=== PATIENT | male | born 1960 | race Caucasian/White ===

== ENCOUNTER 2018-06-02 18:38 | Inpatient (IN) ==
[2018-06-02] MEDS ORDERED: MORPHINE 4 MG/1 ML VIAL IV PRN ×2 (20:46→21:03)
[2018-06-02] MEDS ORDERED: ONDANSETRON 4 MG/2 ML VIAL IV PRN (20:46)
[2018-06-02] MEDS ORDERED: BISACODYL 5 MG TABLET PO PRN (20:46)
[2018-06-02] MEDS ORDERED: ACETAMINOPHEN 325 MG TABLET PO PRN (21:03)
[2018-06-02] MEDS: dilTIAZem Drip 125 MG/125 ML PREMIX IV SCH (21:21)
[2018-06-02] MEDS ORDERED: NITROGLYCERIN SL 0.4 MG TABLET SL ONE (21:30)
[2018-06-03 04:04] LABS: Basophils % 0.6 % (0.0-0.8); Eosinophils # 0.2 10*3/uL (0.0-0.87); Eosinophils % 2.8 % (0.00-10.9); Hematocrit 41.6 VOL% (42.0-52.0); Hemoglobin 13.7 GM/DL (14.0-18.0); Immature Granulocytes % 0.3 %; Immature Granulocytes Absolute 0.02 #; Lymphocytes # 0.8 10*3/uL (1.4-4.0); Lymphocytes % 11.4 % (21.2-54.2); Mean Corpuscular HGB Conc 32.9 GM/DL (32-36); Mean Corpuscular Hemoglobin 32 PG (27-34); Mean Corpuscular Volume 96.5 FL (87-102); Mean Platelet Volume 10.9 FL (9.6-12.0); Monocytes # 0.8 10*3/uL (0.11-0.8); Monocytes % 11.2 % (1.7-12.7); Neutrophils # 5.4 10*3/uL (1.4-7.4); Neutrophils % 73.7 % (38.7-73.9); Platelet Count 152 T/CUMM (130-400); Red Blood Count 4.31 MC/CUMM (3.8-5.5); Red Cell Distribution Width 17.3 % (9.3-17.3); White Blood Count 7.3 T/CUMM (4-12)
[2018-06-03 04:14] LABS: INR 1.3; PT Patient Result 13.8 SECS; Partial Thromboplastin Time 29.2 SECS (0-40)
[2018-06-03 04:27] LABS: Bilirubin,Total 5.4 MG/DL (0.2-1.0); Calcium 8.1 MG/DL (8.5-10.1); Osmolality,Calculated 276.5 MOS/KG (273-304); Potassium 3.5 MMOL/L (3.5-5.1); Risk Ratio 3.45; Total Protein 6.5 G/DL (6.4-8.3); VLDL CHOLESTEROL 14.8 MG/DL
[2018-06-03] MEDS ORDERED: ENOXAPARIN 150 MG/ML SYRINGE SUBCUT SCH (09:00)
[2018-06-03] MEDS ORDERED: CLINDAMYCIN 600 MG/4 ML VIAL IM SCH (09:00)
[2018-06-03] MEDS: FUROSEMIDE 40 MG/4 ML VIAL IV SCH ×2 (09:21→16:42)
[2018-06-03] MEDS: LOSARTAN 50 MG TABLET PO SCH ×2 (09:22→21:16)
[2018-06-03] MEDS: DILTIAZEM CD 240 MG CAPSULE PO SCH (09:22)
[2018-06-03] MEDS: CARVEDILOL 25 MG TABLET PO SCH ×2 (09:22→21:16)
[2018-06-03] MEDS: predniSONE 5 MG TABLET PO SCH (09:22)
[2018-06-03] MEDS: FOLIC ACID 1 MG TABLET PO SCH (09:22)
[2018-06-03] MEDS: CLINDAMYCIN INJ 600 MG in PREMIX 1 EACH IV SCH ×2 (09:41→17:25)
[2018-06-03] MEDS ORDERED: DIAZEPAM 5 MG TABLET PO ONE (12:19)
[2018-06-03] MEDS ORDERED: ASPIRIN 325 MG TABLET PO ONE (12:19)
[2018-06-03] MEDS ORDERED: MAGNESIUM SULF RIDER 2 GM in PREMIX 1 EACH IV PRN (12:19)
[2018-06-03] MEDS ORDERED: POTASSIUM CHLORIDE RIDER 10 MEQ in PREMIX 1 EACH IV PRN (12:19)
[2018-06-03] MEDS ORDERED: diphenhydrAMINE CAP 25 MG CAPSULE PO ONE (12:19)
[2018-06-03] MEDS ORDERED: ASPIRIN 325 MG TABLET ONE (12:28)
[2018-06-03] MEDS ORDERED: diphenhydrAMINE CAP 25 MG CAPSULE ONE (12:28)
[2018-06-03] MEDS: SODIUM CHLORIDE 0.9% 1,000 ML IV SCH (12:34)
[2018-06-03] MEDS ORDERED: LIDOCAINE 1% 20 ML VIAL ONE ×3 (13:25→13:53)
[2018-06-03] MEDS ORDERED: MIDAZOLAM 2 MG/2 ML VIAL ONE (13:26)
[2018-06-03] MEDS ORDERED: fentaNYL 100 MCG/2 ML VIAL ONE (13:27)
[2018-06-03] MEDS ORDERED: TIROFIBAN 5,000 MCG/100 ML PREMIX IV ONE (14:17)
[2018-06-03] MEDS ORDERED: HEPARIN 5,000 UNIT/1 ML VIAL ONE ×2 (14:18→14:40)
[2018-06-03] MEDS ORDERED: TICAGRELOR 90 MG TABLET ONE (15:37)
[2018-06-03 18:40] LABS: CKMB % 6.8 %
[2018-06-03] MEDS: dilTIAZem Drip 125 MG/125 ML PREMIX IV SCH (19:01)
[2018-06-03] MEDS ORDERED: APIXABAN 5 MG TABLET PO SCH (21:00)
[2018-06-03] MEDS: TICAGRELOR 90 MG TABLET PO SCH (21:15)
[2018-06-04] MEDS: SODIUM CHLORIDE 0.9% 1,000 ML IV SCH (00:30)
[2018-06-04] MEDS: CLINDAMYCIN INJ 600 MG in PREMIX 1 EACH IV SCH ×2 (00:30→08:55)
[2018-06-04 02:38] LABS: Basophils % 0.5 % (0.0-0.8); Eosinophils # 0.1 10*3/uL (0.0-0.87); Eosinophils % 1.8 % (0.00-10.9); Hematocrit 39.6 VOL% (42.0-52.0); Hemoglobin 12.6 GM/DL (14.0-18.0); Immature Granulocytes % 0.5 %; Immature Granulocytes Absolute 0.03 #; Lymphocytes # 0.7 10*3/uL (1.4-4.0); Lymphocytes % 11.7 % (21.2-54.2); Mean Corpuscular HGB Conc 31.8 GM/DL (32-36); Mean Corpuscular Hemoglobin 31 PG (27-34); Mean Corpuscular Volume 96.6 FL (87-102); Monocytes # 0.6 10*3/uL (0.11-0.8); Monocytes % 11.3 % (1.7-12.7); Neutrophils # 4.2 10*3/uL (1.4-7.4); Neutrophils % 74.2 % (38.7-73.9); Platelet Count 157 T/CUMM (130-400); Red Cell Distribution Width 17.6 % (9.3-17.3); White Blood Count 5.7 T/CUMM (4-12)
[2018-06-04 03:04] LABS: CKMB % 7.2 %
[2018-06-04 03:13] LABS: Troponin I 17.6 NG/ML (0.00-0.045)
[2018-06-04 03:14] LABS: Osmolality,Calculated 280.3 MOS/KG (273-304); Potassium 3.5 MMOL/L (3.5-5.1)
[2018-06-04] MEDS: predniSONE 5 MG TABLET PO SCH (08:54)
[2018-06-04] MEDS: TICAGRELOR 90 MG TABLET PO SCH (08:54)
[2018-06-04] MEDS: DILTIAZEM CD 240 MG CAPSULE PO SCH (08:54)
[2018-06-04] MEDS: FOLIC ACID 1 MG TABLET PO SCH (08:54)
[2018-06-04] MEDS: CARVEDILOL 25 MG TABLET PO SCH (08:54)
[2018-06-04] MEDS: LOSARTAN 50 MG TABLET PO SCH (08:54)
[2018-06-04] MEDS: FUROSEMIDE 40 MG/4 ML VIAL IV SCH (08:54)
[2018-06-04] MEDS ORDERED: ASPIRIN CHEW 81 MG TABLET PO SCH (09:00)
[2018-06-04 10:05] LABS: CKMB % 6.5 %
[2018-06-04 10:12] LABS: Troponin I 15.2 NG/ML (0.00-0.045)
[2018-06-04 12:24] VITALS: BP 109/77
== END 2018-06-04 13:03 | disposition home or self-care (01) | DRG 246 ==
LOC: EDUNIT# → EDBD → N.ED 18:38 → N.EDINP 18:38 → N.TELEN 21:18
PROVIDERS: ADMIT Internal Medicine; ATTEND Internal Medicine
PROC: CLCCHCL (ICD-10-PCS; 2018-06-03 13:45)

== ENCOUNTER 2018-09-21 16:48 | Inpatient (IN) ==
[2018-09-21] MEDS ORDERED: MORPHINE 4 MG/1 ML VIAL IV STA (17:27)
[2018-09-21] MEDS ORDERED: ALBUTEROL/IPRATROPIUM 3 ML NEB RESP TX STA (17:27)
[2018-09-21] MEDS ORDERED: ASPIRIN 325 MG TABLET PO STA (17:27)
[2018-09-21] MEDS ORDERED: FUROSEMIDE 100 MG/10 ML VIAL IV STA (17:27)
[2018-09-21] MEDS ORDERED: DILTIAZEM 50 MG/10 ML VIAL IV STA (17:27)
[2018-09-21 17:41] LABS: Basophils % 0.8 % (0.0-0.8); Eosinophils # 0.2 10*3/uL (0.0-0.87); Eosinophils % 4.7 % (0.00-10.9); Hematocrit 42.5 VOL% (42.0-52.0); Hemoglobin 13.5 GM/DL (14.0-18.0); Immature Granulocytes % 0.5 %; Immature Granulocytes Absolute 0.02 #; Lymphocytes # 0.5 10*3/uL (1.4-4.0); Lymphocytes % 12.6 % (21.2-54.2); Mean Corpuscular HGB Conc 31.8 GM/DL (32-36); Mean Corpuscular Hemoglobin 30 PG (27-34); Mean Corpuscular Volume 94.4 FL (87-102); Mean Platelet Volume 10.9 FL (9.6-12.0); Monocytes # 0.7 10*3/uL (0.11-0.8); Monocytes % 17.3 % (1.7-12.7); Neutrophils # 2.5 10*3/uL (1.4-7.4); Neutrophils % 64.1 % (38.7-73.9); Platelet Count 122 T/CUMM (130-400); Red Cell Distribution Width 15.4 % (9.3-17.3); White Blood Count 3.8 T/CUMM (4-12)
[2018-09-21 17:50] LABS: INR 1.3; PT Patient Result 13.7 SECS
[2018-09-21 18:08] LABS: Albumin 3.1 G/DL (3.4-5.0); Bilirubin,Total 5.8 MG/DL (0.2-1.0); Calcium 8.4 MG/DL (8.5-10.1); Osmolality,Calculated 278.3 MOS/KG (273-304); Potassium 3.9 MMOL/L (3.5-5.1)
[2018-09-21 18:17] LABS: Band Neutrophils 1 % (0-10); Eosinophils 3 % (0-10); Lymphocytes 10 % (20-55); Platelet Estimate Adequate; Segmented Neutrophils 72 % (50-85); Total Cells Counted 100
[2018-09-21] MEDS ORDERED: DEXTROSE 50% 25 GM/50 ML VIAL IV STA (18:22)
[2018-09-21] MEDS ORDERED: DEXTROSE 50% 25 GM/50 ML SYRINGE IV ONE (18:47)
[2018-09-21] MEDS ORDERED: ONDANSETRON 4 MG/2 ML VIAL IV PRN (18:51)
[2018-09-21] MEDS ORDERED: NITROGLYCERIN SL 0.4 MG TABLET SL PRN (18:55)
[2018-09-21 19:05] LABS: Apearance,Urine CLEAR (Clear); Bilirubin,Urine Negative (Negative); Blood, Urine Negative (Negative); Glucose,Urine (UA) Negative (Negative); Hyaline Casts,Urine 5 /LPF (0-3); Ketones,Urine Negative (Negative); Mucus,Urine Occasional /LPF (Occasional); Nitrite,Urine Negative (Negative); Protein,Urine Negative; RBC,Urine <1 /HPF (0-4); Urine Color Yellow (Yellow); WBC,Urine 1 /HPF (0-6)
[2018-09-21 20:15] LABS: Hepatitis A Ab IgM Quant 0.27 Index; Hepatitis A Ab IgM Result Negative (Negative); Hepatitis B Core IgM Quant 0.14 Index; Hepatitis B Core IgM Result Negative (Negative); Hepatitis B Surface Ag Quant < 0.10 Index; Hepatitis B Surface Ag Result Negative (Negative); Hepatitis C Virus Ab Quant 0.06 Index; Hepatitis C Virus Ab Result Negative (Negative)
[2018-09-21] MEDS: APIXABAN 2.5 MG TABLET PO SCH (21:52)
[2018-09-21] MEDS: TICAGRELOR 90 MG TABLET PO SCH (21:52)
[2018-09-21] MEDS: FUROSEMIDE 40 MG/4 ML VIAL IV SCH (21:52)
[2018-09-21] MEDS: CARVEDILOL 25 MG TABLET PO SCH (21:52)
[2018-09-21] MEDS: LOSARTAN 50 MG TABLET PO SCH (21:52)
[2018-09-22] MEDS: FUROSEMIDE 40 MG/4 ML VIAL IV SCH ×4 (03:44→21:24)
[2018-09-22 04:33] LABS: Basophils % 0.7 % (0.0-0.8); Eosinophils # 0.2 10*3/uL (0.0-0.87); Eosinophils % 4.8 % (0.00-10.9); Hematocrit 44.6 VOL% (42.0-52.0); Hemoglobin 14.3 GM/DL (14.0-18.0); Immature Granulocytes % 0.2 %; Immature Granulocytes Absolute 0.01 #; Lymphocytes # 0.5 10*3/uL (1.4-4.0); Lymphocytes % 10.8 % (21.2-54.2); Mean Corpuscular HGB Conc 32.1 GM/DL (32-36); Mean Corpuscular Hemoglobin 30 PG (27-34); Mean Corpuscular Volume 94.5 FL (87-102); Mean Platelet Volume 11.4 FL (9.6-12.0); Monocytes # 0.7 10*3/uL (0.11-0.8); Monocytes % 16.7 % (1.7-12.7); Neutrophils # 2.8 10*3/uL (1.4-7.4); Neutrophils % 66.8 % (38.7-73.9); Platelet Count 130 T/CUMM (130-400); Red Blood Count 4.72 MC/CUMM (3.8-5.5); Red Cell Distribution Width 15.4 % (9.3-17.3); White Blood Count 4.2 T/CUMM (4-12)
[2018-09-22 04:58] LABS: Albumin 3.4 G/DL (3.4-5.0); Bilirubin,Total 6.4 MG/DL (0.2-1.0); Calcium 8.6 MG/DL (8.5-10.1); Osmolality,Calculated 274.5 MOS/KG (273-304); Potassium 3.6 MMOL/L (3.5-5.1); Risk Ratio 3.22; Thyroid Stimulating Hormone 5.84 uIU/ml (0.358-3.74); Total Protein 7.7 G/DL (6.4-8.3); VLDL CHOLESTEROL 14.6 MG/DL
[2018-09-22 05:47] LABS: Band Neutrophils 2 % (0-10); Eosinophils 3 % (0-10); Hypochromasia Slight; Lymphocytes 6 % (20-55); Microcytosis Slight; Platelet Estimate Adequate; Segmented Neutrophils 78 % (50-85); Total Cells Counted 100
[2018-09-22] MEDS: CARVEDILOL 25 MG TABLET PO SCH ×2 (10:13→16:38)
[2018-09-22] MEDS: DILTIAZEM CD 240 MG CAPSULE PO SCH (10:13)
[2018-09-22] MEDS: TICAGRELOR 90 MG TABLET PO SCH ×2 (10:13→21:24)
[2018-09-22] MEDS: predniSONE 5 MG TABLET PO SCH (10:14)
[2018-09-22] MEDS: LOSARTAN 50 MG TABLET PO SCH ×2 (10:14→21:24)
[2018-09-22] MEDS: APIXABAN 2.5 MG TABLET PO SCH ×2 (10:14→21:30)
[2018-09-22] MEDS: ZALEPLON 5 MG CAPSULE PO PRN (21:24)
[2018-09-23] MEDS: FUROSEMIDE 40 MG/4 ML VIAL IV SCH ×4 (02:00→20:35)
[2018-09-23] MEDS: LEVOTHYROXINE 25 MCG TABLET PO SCH (06:29)
[2018-09-23 08:52] LABS: Calcium 8.4 MG/DL (8.5-10.1); Osmolality,Calculated 277.5 MOS/KG (273-304); Potassium 3.6 MMOL/L (3.5-5.1)
[2018-09-23] MEDS: DILTIAZEM CD 240 MG CAPSULE PO SCH (08:56)
[2018-09-23] MEDS: TICAGRELOR 90 MG TABLET PO SCH ×2 (08:56→20:39)
[2018-09-23] MEDS: APIXABAN 2.5 MG TABLET PO SCH ×2 (08:56→20:39)
[2018-09-23] MEDS: predniSONE 5 MG TABLET PO SCH (08:57)
[2018-09-23] MEDS: LOSARTAN 50 MG TABLET PO SCH ×2 (08:57→20:39)
[2018-09-23] MEDS: CARVEDILOL 25 MG TABLET PO SCH ×2 (08:57→17:23)
[2018-09-23] MEDS: LEVALBUTEROL 0.63 MG/3 ML NEB RESP TX SCH ×3 (09:00→19:08)
[2018-09-23] MEDS ORDERED: metOLazone 5 MG TABLET PO SCH (11:00)
[2018-09-23] MEDS: HYDROcodone/CHLORPHENIRAMINE ER 5 ML UDCUP PO SCH ×2 (11:14→20:40)
[2018-09-23] MEDS: methylPREDNISolone SOD SUC 40 MG/1 ML VIAL IV SCH ×2 (11:17→23:26)
[2018-09-23] MEDS: BENZONATATE 100 MG CAPSULE PO SCH ×2 (14:08→20:39)
[2018-09-23] MEDS: MIRTAZAPINE 15 MG TABLET PO SCH (20:39)
[2018-09-23] MEDS: DOXYCYCLINE HYCLATE 100 MG CAPSULE PO SCH (20:39)
[2018-09-23] MEDS: ZALEPLON 5 MG CAPSULE PO PRN (20:40)
[2018-09-24] MEDS: LEVALBUTEROL 0.63 MG/3 ML NEB RESP TX SCH ×4 (01:32→20:44)
[2018-09-24] MEDS: FUROSEMIDE 40 MG/4 ML VIAL IV SCH ×2 (02:23→08:45)
[2018-09-24 04:24] LABS: Basophils % 0.2 % (0.0-0.8); Hematocrit 41.2 VOL% (42.0-52.0); Hemoglobin 13.3 GM/DL (14.0-18.0); Immature Granulocytes % 0.6 %; Immature Granulocytes Absolute 0.04 #; Lymphocytes # 0.3 10*3/uL (1.4-4.0); Lymphocytes % 5.5 % (21.2-54.2); Mean Corpuscular HGB Conc 32.3 GM/DL (32-36); Mean Corpuscular Hemoglobin 30 PG (27-34); Mean Corpuscular Volume 93.6 FL (87-102); Mean Platelet Volume 11.2 FL (9.6-12.0); Monocytes # 0.2 10*3/uL (0.11-0.8); Monocytes % 3.7 % (1.7-12.7); Neutrophils # 5.5 10*3/uL (1.4-7.4); Platelet Count 113 T/CUMM (130-400); Red Cell Distribution Width 14.8 % (9.3-17.3); White Blood Count 6.2 T/CUMM (4-12)
[2018-09-24 05:04] LABS: Calcium 8.4 MG/DL (8.5-10.1); Potassium 2.9 MMOL/L (3.5-5.1)
[2018-09-24] MEDS: LEVOTHYROXINE 25 MCG TABLET PO SCH (06:16)
[2018-09-24] MEDS: HYDROcodone/CHLORPHENIRAMINE ER 5 ML UDCUP PO SCH ×2 (08:42→22:16)
[2018-09-24] MEDS: CARVEDILOL 25 MG TABLET PO SCH ×2 (08:42→16:20)
[2018-09-24] MEDS: DILTIAZEM CD 240 MG CAPSULE PO SCH (08:43)
[2018-09-24] MEDS: LOSARTAN 50 MG TABLET PO SCH (08:43)
[2018-09-24] MEDS: POTASSIUM CHLORIDE 20 MEQ TABLET PO PRN ×3 (08:43→16:21)
[2018-09-24] MEDS: BENZONATATE 100 MG CAPSULE PO SCH ×3 (08:44→22:15)
[2018-09-24] MEDS: APIXABAN 2.5 MG TABLET PO SCH ×2 (08:44→22:14)
[2018-09-24] MEDS: TICAGRELOR 90 MG TABLET PO SCH ×2 (08:45→22:14)
[2018-09-24] MEDS ORDERED: FUROSEMIDE 40 MG/4 ML VIAL IV SCH (09:00)
[2018-09-24] MEDS: DOXYCYCLINE HYCLATE 100 MG CAPSULE PO SCH ×2 (09:02→22:16)
[2018-09-24] MEDS: POTASSIUM CHLORIDE 20 MEQ TABLET PO SCH ×2 (10:49→22:14)
[2018-09-24] MEDS: methylPREDNISolone SOD SUC 40 MG/1 ML VIAL IV SCH ×2 (12:24→22:18)
[2018-09-24] MEDS: NYSTATIN CREAM 15 GM TUBE TOP SCH ×2 (16:21→22:24)
[2018-09-24] MEDS: MIRTAZAPINE 15 MG TABLET PO SCH (22:15)
[2018-09-24] MEDS: ZALEPLON 5 MG CAPSULE PO PRN (22:16)
[2018-09-25] MEDS: LEVALBUTEROL 0.63 MG/3 ML NEB RESP TX SCH ×4 (00:23→20:05)
[2018-09-25 05:33] LABS: Basophils % 0.1 % (0.0-0.8); Hemoglobin 12.9 GM/DL (14.0-18.0); Immature Granulocytes % 0.7 %; Immature Granulocytes Absolute 0.06 #; Lymphocytes # 0.4 10*3/uL (1.4-4.0); Mean Corpuscular HGB Conc 32.3 GM/DL (32-36); Mean Corpuscular Hemoglobin 30 PG (27-34); Mean Corpuscular Volume 92.6 FL (87-102); Mean Platelet Volume 11.4 FL (9.6-12.0); Monocytes # 0.4 10*3/uL (0.11-0.8); Neutrophils # 8.2 10*3/uL (1.4-7.4); Neutrophils % 91.2 % (38.7-73.9); Platelet Count 110 T/CUMM (130-400); Red Blood Count 4.32 MC/CUMM (3.8-5.5); Red Cell Distribution Width 14.6 % (9.3-17.3)
[2018-09-25 05:53] LABS: Calcium 8.3 MG/DL (8.5-10.1); Osmolality,Calculated 284.8 MOS/KG (273-304); Potassium 2.7 MMOL/L (3.5-5.1)
[2018-09-25] MEDS: LEVOTHYROXINE 25 MCG TABLET PO SCH (06:40)
[2018-09-25 08:17] LABS: Band Neutrophils 1 % (0-10); Lymphocytes 5 % (20-55); Platelet Estimate Adequate; Polychromasia Slight; Segmented Neutrophils 93 % (50-85); Total Cells Counted 100
[2018-09-25] MEDS: DOXYCYCLINE HYCLATE 100 MG CAPSULE PO SCH ×2 (09:14→21:38)
[2018-09-25] MEDS: DILTIAZEM CD 240 MG CAPSULE PO SCH (09:18)
[2018-09-25] MEDS: CARVEDILOL 25 MG TABLET PO SCH ×2 (09:18→17:15)
[2018-09-25] MEDS: POTASSIUM CHLORIDE 20 MEQ TABLET PO SCH ×2 (09:19→21:37)
[2018-09-25] MEDS: BENZONATATE 100 MG CAPSULE PO SCH ×3 (09:19→21:38)
[2018-09-25] MEDS: APIXABAN 2.5 MG TABLET PO SCH ×2 (09:20→21:37)
[2018-09-25] MEDS: TICAGRELOR 90 MG TABLET PO SCH ×2 (09:20→21:37)
[2018-09-25] MEDS: NYSTATIN CREAM 15 GM TUBE TOP SCH ×2 (09:20→21:37)
[2018-09-25] MEDS: methylPREDNISolone SOD SUC 40 MG/1 ML VIAL IV SCH ×2 (09:30→21:38)
[2018-09-25] MEDS ORDERED: CROTAMITON TOP SCH (09:30)
[2018-09-25] MEDS: DORNASE ALFA 2.5 MG/2.5 ML VIAL RESP TX SCH ×2 (09:56→20:05)
[2018-09-25] MEDS: MOISTURIZING CREAM (EUCERIN) 113 GM JAR TOP SCH ×2 (10:14→21:37)
[2018-09-25] MEDS: HYDROcodone/CHLORPHENIRAMINE ER 5 ML UDCUP PO SCH ×2 (10:14→21:38)
[2018-09-25] MEDS: POTASSIUM CHLORIDE 20 MEQ TABLET PO PRN ×2 (11:51→15:05)
[2018-09-25] MEDS: MIRTAZAPINE 15 MG TABLET PO SCH (21:38)
[2018-09-26] MEDS: LEVALBUTEROL 0.63 MG/3 ML NEB RESP TX SCH ×4 (01:54→18:54)
[2018-09-26 05:15] LABS: Basophils % 0.1 % (0.0-0.8); Hematocrit 39.6 VOL% (42.0-52.0); Immature Granulocytes % 0.8 %; Immature Granulocytes Absolute 0.06 #; Lymphocytes # 0.3 10*3/uL (1.4-4.0); Lymphocytes % 3.8 % (21.2-54.2); Mean Corpuscular HGB Conc 32.8 GM/DL (32-36); Mean Corpuscular Hemoglobin 30 PG (27-34); Mean Corpuscular Volume 92.3 FL (87-102); Mean Platelet Volume 11.6 FL (9.6-12.0); Monocytes # 0.3 10*3/uL (0.11-0.8); Monocytes % 4.1 % (1.7-12.7); Neutrophils # 6.6 10*3/uL (1.4-7.4); Neutrophils % 91.2 % (38.7-73.9); Platelet Count 105 T/CUMM (130-400); Red Blood Count 4.29 MC/CUMM (3.8-5.5); Red Cell Distribution Width 14.5 % (9.3-17.3); White Blood Count 7.3 T/CUMM (4-12)
[2018-09-26 05:34] LABS: Calcium 8.3 MG/DL (8.5-10.1); Osmolality,Calculated 292.5 MOS/KG (273-304); Potassium 2.9 MMOL/L (3.5-5.1)
[2018-09-26 05:41] LABS: Band Neutrophils 4 % (0-10); Hypochromasia 1+; Lymphocytes 6 % (20-55); Microcytosis Slight; Segmented Neutrophils 87 % (50-85); Target Cells Few; Total Cells Counted 100
[2018-09-26 05:42] LABS: Platelet Estimate Decreased
[2018-09-26] MEDS ORDERED: MAGNESIUM SULF RIDER 2 GM in PREMIX 1 EACH IV ONE (06:01)
[2018-09-26] MEDS: LEVOTHYROXINE 25 MCG TABLET PO SCH (06:18)
[2018-09-26] MEDS: DORNASE ALFA 2.5 MG/2.5 ML VIAL RESP TX SCH ×2 (07:15→18:55)
[2018-09-26] MEDS: BENZONATATE 100 MG CAPSULE PO SCH ×3 (08:51→21:09)
[2018-09-26] MEDS: POTASSIUM CHLORIDE 20 MEQ TABLET PO PRN ×4 (08:51→14:53)
[2018-09-26] MEDS: POTASSIUM CHLORIDE 20 MEQ TABLET PO SCH ×2 (08:51→21:10)
[2018-09-26] MEDS: DOXYCYCLINE HYCLATE 100 MG CAPSULE PO SCH ×2 (08:52→21:10)
[2018-09-26] MEDS: DILTIAZEM CD 240 MG CAPSULE PO SCH (08:52)
[2018-09-26] MEDS: CARVEDILOL 25 MG TABLET PO SCH ×2 (08:52→17:02)
[2018-09-26] MEDS: TICAGRELOR 90 MG TABLET PO SCH ×2 (08:53→21:10)
[2018-09-26] MEDS: HYDROcodone/CHLORPHENIRAMINE ER 5 ML UDCUP PO SCH ×2 (08:53→21:08)
[2018-09-26] MEDS: MOISTURIZING CREAM (EUCERIN) 113 GM JAR TOP SCH ×2 (08:55→21:12)
[2018-09-26] MEDS: NYSTATIN CREAM 15 GM TUBE TOP SCH ×2 (08:56→21:12)
[2018-09-26] MEDS: methylPREDNISolone SOD SUC 40 MG/1 ML VIAL IV SCH ×2 (10:00→21:09)
[2018-09-26] MEDS ORDERED: SODIUM CHLORIDE 0.9% IV ONE (17:00)
[2018-09-26] MEDS ORDERED: POTASSIUM CHLORIDE IV ONE (17:00)
[2018-09-26] MEDS: AZELASTINE NASAL 137 MCG/SPRAY 30 ML BOTTLE BOTH NARES SCH ×2 (17:01→21:13)
[2018-09-26] MEDS: MIRTAZAPINE 15 MG TABLET PO SCH (21:10)
[2018-09-26] MEDS: BUDESONIDE/FORMOTEROL 160-4.5 INHALER 6 GM INH SCH (21:13)
[2018-09-27] MEDS: LEVALBUTEROL 0.63 MG/3 ML NEB RESP TX SCH ×4 (00:34→19:45)
[2018-09-27 05:03] LABS: Hematocrit 38.3 VOL% (42.0-52.0); Hemoglobin 12.5 GM/DL (14.0-18.0); Immature Granulocytes Absolute 0.06 #; Lymphocytes # 0.2 10*3/uL (1.4-4.0); Lymphocytes % 3.3 % (21.2-54.2); Mean Corpuscular HGB Conc 32.6 GM/DL (32-36); Mean Corpuscular Hemoglobin 31 PG (27-34); Mean Corpuscular Volume 93.4 FL (87-102); Mean Platelet Volume 12.1 FL (9.6-12.0); Monocytes # 0.3 10*3/uL (0.11-0.8); Monocytes % 5.6 % (1.7-12.7); Neutrophils # 5.5 10*3/uL (1.4-7.4); Neutrophils % 90.1 % (38.7-73.9); Platelet Count 109 T/CUMM (130-400); Red Cell Distribution Width 14.6 % (9.3-17.3); White Blood Count 6.1 T/CUMM (4-12)
[2018-09-27 05:22] LABS: Calcium 8.6 MG/DL (8.5-10.1); Osmolality,Calculated 299.5 MOS/KG (273-304); Potassium 3.8 MMOL/L (3.5-5.1)
[2018-09-27 05:31] LABS: Band Neutrophils 1 % (0-10); Lymphocytes 6 % (20-55); Platelet Estimate Decreased; Segmented Neutrophils 89 % (50-85); Total Cells Counted 100
[2018-09-27 05:32] LABS: Hypochromasia 1+; Microcytosis Slight
[2018-09-27] MEDS: LEVOTHYROXINE 25 MCG TABLET PO SCH (06:01)
[2018-09-27] MEDS ORDERED: SODIUM CHLORIDE 0.45% 1,000 ML IV SCH (07:30)
[2018-09-27] MEDS: DORNASE ALFA 2.5 MG/2.5 ML VIAL RESP TX SCH ×2 (07:42→19:44)
[2018-09-27] MEDS: methylPREDNISolone SOD SUC 40 MG/1 ML VIAL IV SCH (09:10)
[2018-09-27] MEDS: BUDESONIDE/FORMOTEROL 160-4.5 INHALER 6 GM INH SCH ×2 (09:13→22:06)
[2018-09-27] MEDS: AZELASTINE NASAL 137 MCG/SPRAY 30 ML BOTTLE BOTH NARES SCH ×2 (09:13→22:05)
[2018-09-27] MEDS: MOISTURIZING CREAM (EUCERIN) 113 GM JAR TOP SCH ×2 (09:15→22:07)
[2018-09-27] MEDS: NYSTATIN CREAM 15 GM TUBE TOP SCH ×2 (09:15→22:06)
[2018-09-27] MEDS: HYDROcodone/CHLORPHENIRAMINE ER 5 ML UDCUP PO SCH ×2 (13:01→22:02)
[2018-09-27] MEDS: POTASSIUM CHLORIDE 20 MEQ TABLET PO SCH ×2 (13:01→22:04)
[2018-09-27] MEDS: DOXYCYCLINE HYCLATE 100 MG CAPSULE PO SCH ×2 (13:01→22:05)
[2018-09-27] MEDS: BENZONATATE 100 MG CAPSULE PO SCH ×3 (13:01→22:03)
[2018-09-27] MEDS: DILTIAZEM CD 240 MG CAPSULE PO SCH (13:02)
[2018-09-27] MEDS: TICAGRELOR 90 MG TABLET PO SCH ×2 (13:02→22:07)
[2018-09-27] MEDS: CARVEDILOL 25 MG TABLET PO SCH ×2 (13:02→19:00)
[2018-09-27] MEDS ORDERED: LIDOCAINE 1% 20 ML VIAL ONE (13:24)
[2018-09-27] MEDS ORDERED: HEPARIN/NACL 0.9% 2 UNITS/ML 1,000 ML IV ONE (13:24)
[2018-09-27] MEDS ORDERED: diphenhydrAMINE CAP 25 MG CAPSULE PO ONE (13:30)
[2018-09-27] MEDS ORDERED: DIAZEPAM 5 MG TABLET PO ONE (13:30)
[2018-09-27] MEDS ORDERED: NITROGLYCERIN DRIP 50 MG/250 ML BOTTLE IV ONE (13:50)
[2018-09-27] MEDS ORDERED: VERAPAMIL 5 MG/2 ML VIAL ONE (13:50)
[2018-09-27] MEDS ORDERED: fentaNYL 100 MCG/2 ML VIAL ONE (13:52)
[2018-09-27] MEDS ORDERED: MIDAZOLAM 2 MG/2 ML VIAL ONE (13:52)
[2018-09-27] MEDS ORDERED: ENOXAPARIN 60 MG/0.6 ML SYRINGE ONE (14:04)
[2018-09-27] MEDS: ZALEPLON 5 MG CAPSULE PO PRN (22:02)
[2018-09-27] MEDS: MIRTAZAPINE 15 MG TABLET PO SCH (22:05)
[2018-09-28] MEDS: LEVALBUTEROL 0.63 MG/3 ML NEB RESP TX SCH ×4 (00:52→19:28)
[2018-09-28 04:49] LABS: Basophils % 0.2 % (0.0-0.8); Hematocrit 38.2 VOL% (42.0-52.0); Hemoglobin 12.1 GM/DL (14.0-18.0); Immature Granulocytes % 1.3 %; Immature Granulocytes Absolute 0.08 #; Lymphocytes # 0.2 10*3/uL (1.4-4.0); Lymphocytes % 2.8 % (21.2-54.2); Mean Corpuscular HGB Conc 31.7 GM/DL (32-36); Mean Corpuscular Hemoglobin 30 PG (27-34); Mean Corpuscular Volume 95.5 FL (87-102); Mean Platelet Volume 11.6 FL (9.6-12.0); Monocytes # 0.5 10*3/uL (0.11-0.8); Monocytes % 7.7 % (1.7-12.7); Neutrophils # 5.4 10*3/uL (1.4-7.4); Platelet Count 110 T/CUMM (130-400); Red Cell Distribution Width 14.6 % (9.3-17.3); White Blood Count 6.1 T/CUMM (4-12)
[2018-09-28 05:13] LABS: Hypochromasia 1+; Lymphocytes 2 % (20-55); Platelet Estimate Decreased; Segmented Neutrophils 93 % (50-85); Total Cells Counted 100
[2018-09-28 05:14] LABS: Microcytosis Slight
[2018-09-28 05:25] LABS: Calcium 9.2 MG/DL (8.5-10.1); Osmolality,Calculated 304.4 MOS/KG (273-304); Potassium 3.9 MMOL/L (3.5-5.1)
[2018-09-28] MEDS: LEVOTHYROXINE 25 MCG TABLET PO SCH (06:23)
[2018-09-28] MEDS: DORNASE ALFA 2.5 MG/2.5 ML VIAL RESP TX SCH ×2 (07:40→19:29)
[2018-09-28] MEDS: POTASSIUM CHLORIDE 20 MEQ TABLET PO SCH ×2 (09:29→21:36)
[2018-09-28] MEDS: predniSONE 20 MG TABLET PO SCH (09:30)
[2018-09-28] MEDS: DILTIAZEM CD 240 MG CAPSULE PO SCH (09:30)
[2018-09-28] MEDS: BENZONATATE 100 MG CAPSULE PO SCH ×3 (09:30→21:35)
[2018-09-28] MEDS: TICAGRELOR 90 MG TABLET PO SCH ×2 (09:31→21:35)
[2018-09-28] MEDS: CARVEDILOL 25 MG TABLET PO SCH ×2 (09:31→16:37)
[2018-09-28] MEDS: DOXYCYCLINE HYCLATE 100 MG CAPSULE PO SCH ×2 (09:31→21:36)
[2018-09-28] MEDS: HYDROcodone/CHLORPHENIRAMINE ER 5 ML UDCUP PO SCH ×2 (09:31→21:37)
[2018-09-28] MEDS: AZELASTINE NASAL 137 MCG/SPRAY 30 ML BOTTLE BOTH NARES SCH ×2 (09:32→21:43)
[2018-09-28] MEDS: MOISTURIZING CREAM (EUCERIN) 113 GM JAR TOP SCH ×2 (09:32→21:44)
[2018-09-28] MEDS: BUDESONIDE/FORMOTEROL 160-4.5 INHALER 6 GM INH SCH ×2 (09:33→21:44)
[2018-09-28] MEDS: NYSTATIN CREAM 15 GM TUBE TOP SCH ×2 (09:33→21:44)
[2018-09-28] MEDS: MIRTAZAPINE 15 MG TABLET PO SCH (21:36)
[2018-09-28] MEDS: ZALEPLON 5 MG CAPSULE PO PRN (21:43)
[2018-09-29] MEDS: LEVALBUTEROL 0.63 MG/3 ML NEB RESP TX SCH ×2 (00:19→07:32)
[2018-09-29] MEDS: LEVOTHYROXINE 25 MCG TABLET PO SCH (06:37)
[2018-09-29] MEDS: DORNASE ALFA 2.5 MG/2.5 ML VIAL RESP TX SCH (07:41)
[2018-09-29 08:20] VITALS: BP 155/94
[2018-09-29] MEDS: DILTIAZEM CD 240 MG CAPSULE PO SCH (08:56)
[2018-09-29] MEDS: predniSONE 20 MG TABLET PO SCH (08:56)
[2018-09-29] MEDS: TICAGRELOR 90 MG TABLET PO SCH (08:56)
[2018-09-29] MEDS: POTASSIUM CHLORIDE 20 MEQ TABLET PO SCH (08:58)
[2018-09-29] MEDS: DOXYCYCLINE HYCLATE 100 MG CAPSULE PO SCH (08:58)
[2018-09-29] MEDS: BENZONATATE 100 MG CAPSULE PO SCH (08:58)
[2018-09-29] MEDS: CARVEDILOL 25 MG TABLET PO SCH (08:59)
[2018-09-29] MEDS ORDERED: APIXABAN 2.5 MG TABLET PO SCH (09:00)
[2018-09-29] MEDS: BUDESONIDE/FORMOTEROL 160-4.5 INHALER 6 GM INH SCH (09:02)
[2018-09-29] MEDS: AZELASTINE NASAL 137 MCG/SPRAY 30 ML BOTTLE BOTH NARES SCH (09:02)
[2018-09-29] MEDS: NYSTATIN CREAM 15 GM TUBE TOP SCH (09:05)
[2018-09-29] MEDS: MOISTURIZING CREAM (EUCERIN) 113 GM JAR TOP SCH (09:10)
[2018-09-29] MEDS: HYDROcodone/CHLORPHENIRAMINE ER 5 ML UDCUP PO SCH (09:16)
== END 2018-09-29 11:39 | disposition home or self-care (01) | DRG 287 ==
LOC: EDBD → EDUNIT# → N.ED 16:48 → N.EDINP 18:51 → N.TELEN 20:06
PROVIDERS: ADMIT Internal Medicine; ATTEND Internal Medicine

== ENCOUNTER 2019-01-25 20:20 | Inpatient (IN) ==
[2019-01-25] MEDS ORDERED: ONDANSETRON 4 MG/2 ML VIAL IV STA (20:31)
[2019-01-25] MEDS ORDERED: FUROSEMIDE 100 MG/10 ML VIAL IV STA (20:31)
[2019-01-25 20:57] LABS: Basophils # 0.1 10*3/uL (0.0-0.2); Basophils % 0.8 % (0.0-0.8); Eosinophils # 0.3 10*3/uL (0.0-0.87); Eosinophils % 4.9 % (0.00-10.9); Hematocrit 42.4 VOL% (42.0-52.0); Hemoglobin 13.5 GM/DL (14.0-18.0); Immature Granulocytes % 0.5 %; Immature Granulocytes Absolute 0.03 #; Lymphocytes # 0.9 10*3/uL (1.4-4.0); Lymphocytes % 14.3 % (21.2-54.2); Mean Corpuscular HGB Conc 31.8 GM/DL (32-36); Mean Corpuscular Volume 93.2 FL (87-102); Mean Platelet Volume 10.9 FL (9.6-12.0); Monocytes % 12.3 % (1.7-12.7); Neutrophils % 67.2 % (38.7-73.9); Platelet Count 163 T/CUMM (130-400); Red Blood Count 4.55 MC/CUMM (3.8-5.5); Red Cell Distribution Width 16.4 % (9.3-17.3); White Blood Count 6.5 T/CUMM (4-12)
[2019-01-25 21:00] LABS: Apearance,Urine CLEAR (Clear); Bilirubin,Urine Negative (Negative); Blood, Urine Small mg/dL (Negative); Glucose,Urine (UA) Negative (Negative); Ketones,Urine Negative (Negative); Mucus,Urine Occasional /LPF (Occasional); Nitrite,Urine Negative (Negative); Protein,Urine 30 MG/DL; RBC,Urine 2 /HPF (0-4); Squamous Epithelial Cell,Urine Occasional /HPF (0-10); Urine Color Yellow (Yellow); Urine Specific Gravity 1.011 (1.001-1.035); WBC,Urine 1 /HPF (0-6)
[2019-01-25] MEDS ORDERED: ALBUTEROL NEB SOLN 5 MG/ML 20 ML/BOTTLE RESP TX SCH (21:00)
[2019-01-25 21:06] LABS: INR 1.2; PT Patient Result 12.5 SECS
[2019-01-25 21:17] LABS: Albumin 3.5 G/DL (3.4-5.0); Bilirubin,Total 3.8 MG/DL (0.2-1.0); Calcium 9.1 MG/DL (8.5-10.1); Osmolality,Calculated 280.1 MOS/KG (273-304); Total Protein 7.4 G/DL (6.4-8.3)
[2019-01-26] MEDS ORDERED: TICAGRELOR 90 MG TABLET PO SCH (00:36)
[2019-01-26] MEDS ORDERED: NITROGLYCERIN SL 0.4 MG TABLET SL PRN (00:36)
[2019-01-26] MEDS ORDERED: DOCUSATE SODIUM 100 MG CAPSULE PO PRN (00:36)
[2019-01-26] MEDS ORDERED: ONDANSETRON 4 MG/2 ML VIAL IV PRN (00:36)
[2019-01-26] MEDS: CARVEDILOL 25 MG TABLET PO SCH ×3 (01:07→21:24)
[2019-01-26 06:05] LABS: Basophils % 0.7 % (0.0-0.8); Eosinophils # 0.3 10*3/uL (0.0-0.87); Eosinophils % 4.8 % (0.00-10.9); Hematocrit 38.1 VOL% (42.0-52.0); Hemoglobin 12.1 GM/DL (14.0-18.0); Immature Granulocytes % 0.4 %; Immature Granulocytes Absolute 0.02 #; Lymphocytes # 0.7 10*3/uL (1.4-4.0); Lymphocytes % 12.6 % (21.2-54.2); Mean Corpuscular HGB Conc 31.8 GM/DL (32-36); Mean Corpuscular Volume 92.9 FL (87-102); Mean Platelet Volume 10.5 FL (9.6-12.0); Monocytes % 13.3 % (1.7-12.7); Neutrophils % 68.2 % (38.7-73.9); Platelet Count 140 T/CUMM (130-400); Red Cell Distribution Width 16.1 % (9.3-17.3); White Blood Count 5.6 T/CUMM (4-12)
[2019-01-26] MEDS: MOISTURIZING CREAM (EUCERIN) 106 GM JAR TOP SCH ×3 (06:32→21:29)
[2019-01-26] MEDS: NYSTATIN CREAM 15 GM TUBE TOP SCH ×3 (06:33→21:29)
[2019-01-26 06:35] LABS: Calcium 8.7 MG/DL (8.5-10.1); Osmolality,Calculated 281.1 MOS/KG (273-304)
[2019-01-26] MEDS: TICAGRELOR 90 MG TABLET PO SCH ×2 (08:23→21:24)
[2019-01-26] MEDS: FUROSEMIDE 40 MG/4 ML VIAL IV SCH ×2 (08:23→16:03)
[2019-01-26] MEDS ORDERED: DILTIAZEM CD 240 MG CAPSULE PO SCH (09:00)
[2019-01-26] MEDS ORDERED: APIXABAN 2.5 MG TABLET PO SCH (09:00)
[2019-01-26 10:59] LABS: Troponin I 0.069 NG/ML (0.00-0.045)
[2019-01-26] MEDS: POTASSIUM CHLORIDE 20 MEQ TABLET PO PRN ×3 (12:02→16:06)
[2019-01-26] MEDS: SPIRONOLACTONE 25 MG TABLET PO SCH (12:02)
[2019-01-26 14:36] LABS: Troponin I 0.065 NG/ML (0.00-0.045)
[2019-01-26] MEDS: APIXABAN 2.5 MG TABLET PO SCH (21:24)
[2019-01-27 04:39] LABS: Basophils % 0.6 % (0.0-0.8); Eosinophils # 0.3 10*3/uL (0.0-0.87); Eosinophils % 4.1 % (0.00-10.9); Hematocrit 34.1 VOL% (42.0-52.0); Immature Granulocytes % 0.5 %; Immature Granulocytes Absolute 0.03 #; Lymphocytes # 0.6 10*3/uL (1.4-4.0); Lymphocytes % 9.7 % (21.2-54.2); Mean Corpuscular HGB Conc 32.3 GM/DL (32-36); Mean Corpuscular Volume 91.9 FL (87-102); Mean Platelet Volume 11.2 FL (9.6-12.0); Monocytes % 12.9 % (1.7-12.7); Neutrophils % 72.2 % (38.7-73.9); Platelet Count 130 T/CUMM (130-400); Red Blood Count 3.71 MC/CUMM (3.8-5.5); Red Cell Distribution Width 15.9 % (9.3-17.3); White Blood Count 6.3 T/CUMM (4-12)
[2019-01-27 04:59] LABS: Calcium 8.5 MG/DL (8.5-10.1); Osmolality,Calculated 283.1 MOS/KG (273-304)
[2019-01-27 05:00] LABS: Calcium 8.6 MG/DL (8.5-10.1)
[2019-01-27] MEDS: FUROSEMIDE 40 MG/4 ML VIAL IV SCH ×2 (08:38→16:27)
[2019-01-27] MEDS: SPIRONOLACTONE 25 MG TABLET PO SCH (08:42)
[2019-01-27] MEDS: CARVEDILOL 25 MG TABLET PO SCH ×2 (08:42→21:15)
[2019-01-27] MEDS: APIXABAN 2.5 MG TABLET PO SCH ×2 (08:43→21:15)
[2019-01-27] MEDS: DILTIAZEM CD 120 MG CAPSULE PO SCH (08:43)
[2019-01-27] MEDS: TICAGRELOR 90 MG TABLET PO SCH ×2 (08:44→21:15)
[2019-01-27] MEDS: MOISTURIZING CREAM (EUCERIN) 106 GM JAR TOP SCH ×2 (08:45→21:15)
[2019-01-27] MEDS: NYSTATIN CREAM 15 GM TUBE TOP SCH ×2 (08:45→21:15)
[2019-01-27] MEDS ORDERED: MAGNESIUM SULF RIDER 2 GM in PREMIX 1 EACH IV ONE (10:01)
[2019-01-27] MEDS: ACETAMINOPHEN 325 MG TABLET PO PRN (12:17)
[2019-01-28] MEDS: ACETAMINOPHEN 325 MG TABLET PO PRN (04:58)
[2019-01-28 06:23] LABS: Basophils % 0.5 % (0.0-0.8); Eosinophils # 0.2 10*3/uL (0.0-0.87); Eosinophils % 3.6 % (0.00-10.9); Hematocrit 33.3 VOL% (42.0-52.0); Hemoglobin 10.6 GM/DL (14.0-18.0); Immature Granulocytes % 0.6 %; Immature Granulocytes Absolute 0.04 #; Lymphocytes # 0.6 10*3/uL (1.4-4.0); Lymphocytes % 9.2 % (21.2-54.2); Mean Corpuscular HGB Conc 31.8 GM/DL (32-36); Mean Platelet Volume 10.9 FL (9.6-12.0); Monocytes % 13.8 % (1.7-12.7); Neutrophils % 72.3 % (38.7-73.9); Platelet Count 117 T/CUMM (130-400); Red Blood Count 3.58 MC/CUMM (3.8-5.5); Red Cell Distribution Width 15.9 % (9.3-17.3); White Blood Count 6.7 T/CUMM (4-12)
[2019-01-28 06:40] LABS: Alanine Aminotransferase < 6 U/L (16-61); Albumin 2.9 G/DL (3.4-5.0); Alkaline Phosphatase 103 U/L (45-117); Aspartate Amino Transferase 14 U/L (0-37); Blood Urea Nitrogen 17 MG/DL (7-18); Calcium 8.8 MG/DL (8.5-10.1); Glucose 90 MG/DL (74-106); Osmolality,Calculated 280.4 MOS/KG (273-304); Total Protein 6.1 G/DL (6.4-8.3)
[2019-01-28] MEDS: DILTIAZEM CD 120 MG CAPSULE PO SCH (08:48)
[2019-01-28] MEDS: TICAGRELOR 90 MG TABLET PO SCH ×2 (08:48→21:11)
[2019-01-28] MEDS: CARVEDILOL 25 MG TABLET PO SCH ×2 (08:49→21:10)
[2019-01-28] MEDS: SPIRONOLACTONE 25 MG TABLET PO SCH (08:50)
[2019-01-28] MEDS: APIXABAN 2.5 MG TABLET PO SCH ×2 (08:50→21:11)
[2019-01-28] MEDS: FUROSEMIDE 40 MG/4 ML VIAL IV SCH ×2 (08:51→16:34)
[2019-01-28] MEDS: NYSTATIN CREAM 15 GM TUBE TOP SCH ×2 (08:55→21:17)
[2019-01-28] MEDS: MOISTURIZING CREAM (EUCERIN) 106 GM JAR TOP SCH ×2 (08:55→21:17)
[2019-01-28] MEDS ORDERED: metOLazone 5 MG TABLET PO SCH (10:43)
[2019-01-28] MEDS ORDERED: SPIRONOLACTONE 25 MG TABLET PO SCH (11:00)
[2019-01-28] MEDS: ALBUMIN 25% 25 GM in PREMIX 1 EACH IV SCH ×2 (14:24→21:10)
[2019-01-29] MEDS ORDERED: ZALEPLON 5 MG CAPSULE PO PRN (00:46)
[2019-01-29 04:49] LABS: Basophils % 0.4 % (0.0-0.8); Eosinophils # 0.3 10*3/uL (0.0-0.87); Hematocrit 31.1 VOL% (42.0-52.0); Hemoglobin 9.8 GM/DL (14.0-18.0); Immature Granulocytes % 0.4 %; Immature Granulocytes Absolute 0.03 #; Lymphocytes # 0.6 10*3/uL (1.4-4.0); Lymphocytes % 8.3 % (21.2-54.2); Mean Corpuscular HGB Conc 31.5 GM/DL (32-36); Mean Corpuscular Volume 91.5 FL (87-102); Mean Platelet Volume 11.1 FL (9.6-12.0); Monocytes % 12.5 % (1.7-12.7); Neutrophils % 74.4 % (38.7-73.9); Platelet Count 126 T/CUMM (130-400); Red Cell Distribution Width 15.8 % (9.3-17.3); White Blood Count 6.7 T/CUMM (4-12)
[2019-01-29 05:16] LABS: Calcium 8.8 MG/DL (8.5-10.1); Osmolality,Calculated 279.5 MOS/KG (273-304)
[2019-01-29] MEDS: ALBUMIN 25% 25 GM in PREMIX 1 EACH IV SCH ×2 (06:03→13:59)
[2019-01-29] MEDS: POTASSIUM CHLORIDE 20 MEQ TABLET PO PRN ×4 (06:06→22:59)
[2019-01-29] MEDS: TICAGRELOR 90 MG TABLET PO SCH ×2 (08:34→20:10)
[2019-01-29] MEDS: CARVEDILOL 25 MG TABLET PO SCH ×2 (08:34→20:10)
[2019-01-29] MEDS: APIXABAN 2.5 MG TABLET PO SCH ×2 (08:34→20:10)
[2019-01-29] MEDS: MOISTURIZING CREAM (EUCERIN) 106 GM JAR TOP SCH ×2 (08:38→20:08)
[2019-01-29] MEDS: NYSTATIN CREAM 15 GM TUBE TOP SCH ×2 (08:39→20:08)
[2019-01-29] MEDS ORDERED: METHOCARBAMOL 500 MG TABLET PO SCH (13:00)
[2019-01-29] MEDS: CYCLOBENZAPRINE 10 MG TABLET PO SCH (20:10)
[2019-01-30 05:47] LABS: Basophils % 0.4 % (0.0-0.8); Eosinophils # 0.3 10*3/uL (0.0-0.87); Hematocrit 30.8 VOL% (42.0-52.0); Hemoglobin 9.8 GM/DL (14.0-18.0); Immature Granulocytes % 0.6 %; Immature Granulocytes Absolute 0.04 #; Lymphocytes # 1.2 10*3/uL (1.4-4.0); Lymphocytes % 17.4 % (21.2-54.2); Mean Corpuscular HGB Conc 31.8 GM/DL (32-36); Mean Corpuscular Volume 91.9 FL (87-102); Monocytes % 4.9 % (1.7-12.7); Neutrophils % 71.7 % (38.7-73.9); Platelet Count 140 T/CUMM (130-400); Red Blood Count 3.35 MC/CUMM (3.8-5.5); Red Cell Distribution Width 15.7 % (9.3-17.3); White Blood Count 6.7 T/CUMM (4-12)
[2019-01-30 06:08] LABS: Calcium 8.7 MG/DL (8.5-10.1); Osmolality,Calculated 274.8 MOS/KG (273-304)
[2019-01-30] MEDS: POTASSIUM CHLORIDE 20 MEQ TABLET PO PRN (06:25)
[2019-01-30] MEDS ORDERED: SPIRONOLACTONE 25 MG TABLET PO SCH (09:00)
[2019-01-30] MEDS ORDERED: FUROSEMIDE 40 MG TABLET PO SCH (09:00)
[2019-01-30] MEDS: CARVEDILOL 25 MG TABLET PO SCH (10:06)
[2019-01-30] MEDS: CYCLOBENZAPRINE 10 MG TABLET PO SCH ×2 (10:06→15:49)
[2019-01-30] MEDS: APIXABAN 2.5 MG TABLET PO SCH (10:07)
[2019-01-30] MEDS ORDERED: FUROSEMIDE 80 MG TABLET PO SCH (10:30)
[2019-01-30] MEDS: TICAGRELOR 90 MG TABLET PO SCH (10:46)
[2019-01-30] MEDS: MOISTURIZING CREAM (EUCERIN) 106 GM JAR TOP SCH (10:47)
[2019-01-30] MEDS: NYSTATIN CREAM 15 GM TUBE TOP SCH (10:47)
[2019-01-30 12:18] VITALS: BP 130/81
== END 2019-01-30 16:30 | disposition home health service (06) | DRG 291 ==
LOC: EDBD → EDUNIT# → N.ED 20:20 → N.EDINP 23:24 → SUATTDRO 23:24 → N.2E 23:45
PROVIDERS: ADMIT Internal Medicine; ATTEND Family Medicine

== ENCOUNTER 2019-04-24 19:08 | Inpatient (IN) ==
[2019-04-24] MEDS ORDERED: FUROSEMIDE 100 MG/10 ML VIAL IV STA (19:31)
[2019-04-24 20:30] LABS: Basophils # 0.1 10*3/uL (0.0-0.2); Basophils % 0.9 % (0.0-0.8); Eosinophils # 0.3 10*3/uL (0.0-0.87); Eosinophils % 5.2 % (0.00-10.9); Hematocrit 39.7 VOL% (42.0-52.0); Hemoglobin 12.8 GM/DL (14.0-18.0); Immature Granulocytes % 0.4 %; Immature Granulocytes Absolute 0.02 #; Lymphocytes # 0.7 10*3/uL (1.4-4.0); Lymphocytes % 11.9 % (21.2-54.2); Mean Corpuscular HGB Conc 32.2 GM/DL (32-36); Mean Corpuscular Volume 94.3 FL (87-102); Mean Platelet Volume 10.5 FL (9.6-12.0); Monocytes % 10.3 % (1.7-12.7); Neutrophils % 71.3 % (38.7-73.9); Platelet Count 145 T/CUMM (130-400); Red Blood Count 4.21 MC/CUMM (3.8-5.5); Red Cell Distribution Width 16.8 % (9.3-17.3); White Blood Count 5.6 T/CUMM (4-12)
[2019-04-24 20:46] LABS: INR 1.2; PT Patient Result 12.8 SECS (9.6-12.2)
[2019-04-24 20:48] LABS: Alanine Aminotransferase < 9 U/L (16-61); Albumin 3.3 G/DL (3.4-5.0); Alkaline Phosphatase 117 U/L (45-117); Aspartate Amino Transferase 18 U/L (0-37); Blood Urea Nitrogen 14 MG/DL (7-18); Calcium 8.7 MG/DL (8.5-10.1); Estimated Glom Filtration Rate 75 ML/MIN; Glucose 65 MG/DL (74-106); Osmolality,Calculated 281.1 MOS/KG (273-304); Total Protein 6.8 G/DL (6.4-8.3)
[2019-04-24 21:23] LABS: ABG Base Excess -0.2 MMOL/L (-2.5-2.5); ABG HCO3 24.3 MMOL/L (20-26); ABG Oxygen Saturation 98.3 % (95-100); ABG PCO2 34.4 MM HG (35-48); ABG PH 7.438 (7.35-7.45); Allen Test Positive
[2019-04-24] MEDS ORDERED: DILTIAZEM 50 MG/10 ML VIAL IV STA (21:24)
[2019-04-24] MEDS ORDERED: ONDANSETRON 4 MG/2 ML VIAL IV PRN (22:41)
[2019-04-24] MEDS ORDERED: MORPHINE 4 MG/1 ML VIAL IV PRN (22:41)
[2019-04-24] MEDS ORDERED: ENOXAPARIN 100 MG/ML SYRINGE SUBCUT SCH (23:30)
[2019-04-25 03:12] LABS: Basophils # 0.1 10*3/uL (0.0-0.2); Basophils % 0.9 % (0.0-0.8); Eosinophils # 0.3 10*3/uL (0.0-0.87); Eosinophils % 5.5 % (0.00-10.9); Hematocrit 38.9 VOL% (42.0-52.0); Hemoglobin 12.6 GM/DL (14.0-18.0); Immature Granulocytes % 0.3 %; Immature Granulocytes Absolute 0.02 #; Lymphocytes # 0.6 10*3/uL (1.4-4.0); Lymphocytes % 10.2 % (21.2-54.2); Mean Corpuscular HGB Conc 32.4 GM/DL (32-36); Mean Corpuscular Volume 93.3 FL (87-102); Mean Platelet Volume 10.6 FL (9.6-12.0); Monocytes % 11.6 % (1.7-12.7); Neutrophils % 71.5 % (38.7-73.9); Platelet Count 138 T/CUMM (130-400); Red Blood Count 4.17 MC/CUMM (3.8-5.5); Red Cell Distribution Width 16.8 % (9.3-17.3); White Blood Count 5.8 T/CUMM (4-12)
[2019-04-25 03:36] LABS: Calcium 8.6 MG/DL (8.5-10.1); Osmolality,Calculated 282.3 MOS/KG (273-304)
[2019-04-25] MEDS: FUROSEMIDE 40 MG/4 ML VIAL IV SCH ×2 (08:50→15:09)
[2019-04-25] MEDS: carvediloL 25 MG TABLET PO SCH ×2 (08:51→20:26)
[2019-04-25] MEDS: PANTOPRAZOLE 40 MG TABLET PO SCH (08:51)
[2019-04-25] MEDS: SPIRONOLACTONE 25 MG TABLET PO SCH (08:51)
[2019-04-25] MEDS: LOSARTAN 25 MG TABLET PO SCH (08:51)
[2019-04-25] MEDS ORDERED: APIXABAN 2.5 MG TABLET PO SCH (09:00)
[2019-04-25] MEDS: metOLazone 5 MG TABLET PO SCH (13:37)
[2019-04-25] MEDS: APIXABAN 2.5 MG TABLET PO SCH (20:26)
[2019-04-25] MEDS ORDERED: TICAGRELOR 90 MG TABLET PO SCH (21:00)
[2019-04-26 05:06] LABS: Basophils % 0.6 % (0.0-0.8); Eosinophils # 0.2 10*3/uL (0.0-0.87); Eosinophils % 4.3 % (0.00-10.9); Hematocrit 36.8 VOL% (42.0-52.0); Immature Granulocytes % 0.4 %; Immature Granulocytes Absolute 0.02 #; Lymphocytes # 0.6 10*3/uL (1.4-4.0); Lymphocytes % 12.2 % (21.2-54.2); Mean Corpuscular HGB Conc 32.6 GM/DL (32-36); Mean Platelet Volume 11.2 FL (9.6-12.0); Monocytes % 10.1 % (1.7-12.7); Neutrophils % 72.4 % (38.7-73.9); Platelet Count 136 T/CUMM (130-400); Red Cell Distribution Width 16.5 % (9.3-17.3); White Blood Count 5.2 T/CUMM (4-12)
[2019-04-26 05:18] LABS: Calcium 8.5 MG/DL (8.5-10.1); Osmolality,Calculated 277.5 MOS/KG (273-304)
[2019-04-26 05:19] LABS: Calcium 8.6 MG/DL (8.5-10.1); Osmolality,Calculated 280.4 MOS/KG (273-304)
[2019-04-26 05:25] LABS: Risk Ratio 2.96; VLDL CHOLESTEROL 12.8 MG/DL
[2019-04-26] MEDS: carvediloL 25 MG TABLET PO SCH (09:02)
[2019-04-26] MEDS: metOLazone 5 MG TABLET PO SCH (09:02)
[2019-04-26] MEDS: SPIRONOLACTONE 25 MG TABLET PO SCH (09:02)
[2019-04-26] MEDS: LOSARTAN 25 MG TABLET PO SCH (09:02)
[2019-04-26] MEDS: APIXABAN 2.5 MG TABLET PO SCH (09:03)
[2019-04-26] MEDS: FUROSEMIDE 40 MG/4 ML VIAL IV SCH ×2 (09:03→16:01)
[2019-04-26] MEDS: PANTOPRAZOLE 40 MG TABLET PO SCH (09:03)
[2019-04-26] MEDS ORDERED: SPIRONOLACTONE 25 MG TABLET PO SCH (09:49)
[2019-04-26] MEDS ORDERED: SPIRONOLACTONE 25 MG TABLET PO ONE (09:49)
[2019-04-26 15:35] VITALS: BP 103/68
== END 2019-04-26 17:48 | disposition home or self-care (01) | DRG 291 ==
LOC: EDBD → EDUNIT# → N.ED 19:08 → N.EDINP 22:41 → N.TELES 23:08
PROVIDERS: ADMIT Hospitalist; ATTEND Hospitalist

== ENCOUNTER 2020-09-14 09:23 | Inpatient (IN) ==
[2020-09-14] MEDS ORDERED: ASPIRIN 325 MG TABLET PO STA (09:26)
[2020-09-14] MEDS ORDERED: FUROSEMIDE 40 MG/4 ML VIAL IV STA (09:27)
[2020-09-14 09:40] LABS: Basophils # 0.1 10*3/uL (0.0-0.2); Eosinophils # 0.3 10*3/uL (0.0-0.87); Eosinophils % 4.7 % (0.00-10.9); Hematocrit 41.5 VOL% (42.0-52.0); Hemoglobin 13.2 GM/DL (14.0-18.0); Immature Granulocytes % 0.5 %; Immature Granulocytes Absolute 0.03 #; Lymphocytes # 0.6 10*3/uL (1.4-4.0); Lymphocytes % 10.3 % (21.2-54.2); Mean Corpuscular HGB Conc 31.8 GM/DL (32-36); Mean Corpuscular Volume 99.5 FL (87-102); Mean Platelet Volume 10.8 FL (9.6-12.0); Monocytes % 10.8 % (1.7-12.7); Neutrophils % 72.7 % (38.7-73.9); Platelet Count 135 T/CUMM (130-400); Red Blood Count 4.17 MC/CUMM (3.8-5.5); Red Cell Distribution Width 16.7 % (9.3-17.3)
[2020-09-14 10:01] LABS: INR 1.2; PT Patient Result 12.6 SECS (9.8-11.9)
[2020-09-14 10:14] LABS: Alanine Aminotransferase 10 U/L (16-61); Albumin 3.6 G/DL (3.4-5.0); Alkaline Phosphatase 104 U/L (45-117); Aspartate Amino Transferase 30 U/L (0-37); Blood Urea Nitrogen 17 MG/DL (7-18); Calcium 9.4 MG/DL (8.5-10.1); Carbon Dioxide 22 MMOL/L (21-32); Estimated Glom Filtration Rate 70 ML/MIN; Glucose 58 MG/DL (74-106); Sodium 136 MMOL/L (136-145); Total Protein 8.3 G/DL (6.4-8.3)
[2020-09-14 10:14] LABS: ABG Base Excess -0.8 MMOL/L (-2.5-2.5); ABG HCO3 23.8 MMOL/L (20-26); ABG Oxygen Saturation 97.3 % (95-100); ABG PCO2 31.6 MM HG (35-48); ABG PH 7.455 (7.35-7.45); ABG PO2 87.4 MM HG (80-95); ABG TCO2 19.4 MMOL/L (23-27)
[2020-09-14 10:15] LABS: Troponin I 0.169 NG/ML (0.00-0.045)
[2020-09-14] MEDS ORDERED: DILTIAZEM 50 MG/10 ML VIAL IV STA (10:48)
[2020-09-14] MEDS ORDERED: ONDANSETRON 4 MG/2 ML VIAL IV PRN (11:55)
[2020-09-14] MEDS ORDERED: GLUCAGON 1 MG VIAL IM PRN (11:55)
[2020-09-14] MEDS ORDERED: DEXTROSE 50% 25 GM/50 ML VIAL IV PRN (11:55)
[2020-09-14] MEDS ORDERED: ACETAMINOPHEN 325 MG TABLET PO PRN (11:55)
[2020-09-14] MEDS ORDERED: NITROGLYCERIN SL 0.4 MG TABLET SL PRN (14:56)
[2020-09-14] MEDS ORDERED: NICOTINE 14 MG/24 HR PATCH TRANSDERM PRN (15:19)
[2020-09-14] MEDS: FUROSEMIDE 40 MG/4 ML VIAL IV SCH ×2 (20:17→20:39)
[2020-09-14] MEDS: carvediloL 12.5 MG TABLET PO SCH (20:38)
[2020-09-14] MEDS: WHITE PETROLATUM MINERAL OIL TOP SCH (20:38)
[2020-09-15 06:07] LABS: Basophils # 0.1 10*3/uL (0.0-0.2); Basophils % 1.2 % (0.0-0.8); Eosinophils # 0.3 10*3/uL (0.0-0.87); Eosinophils % 5.8 % (0.00-10.9); Hematocrit 34.4 VOL% (42.0-52.0); Hemoglobin 11.3 GM/DL (14.0-18.0); Immature Granulocytes % 0.4 %; Immature Granulocytes Absolute 0.02 #; Lymphocytes # 0.5 10*3/uL (1.4-4.0); Lymphocytes % 10.2 % (21.2-54.2); Mean Corpuscular HGB Conc 32.8 GM/DL (32-36); Mean Corpuscular Volume 97.2 FL (87-102); Mean Platelet Volume 10.8 FL (9.6-12.0); Monocytes % 13.3 % (1.7-12.7); Neutrophils % 69.1 % (38.7-73.9); Platelet Count 115 T/CUMM (130-400); Red Blood Count 3.54 MC/CUMM (3.8-5.5); Red Cell Distribution Width 16.5 % (9.3-17.3)
[2020-09-15 06:23] LABS: Calcium 8.8 MG/DL (8.5-10.1); Osmolality,Calculated 276.7 MOS/KG (273-304); Potassium 3.5 MMOL/L (3.5-5.1)
[2020-09-15 06:32] LABS: Hypochromasia 2+; Microcytosis 1+; Platelet Estimate Decreased
[2020-09-15] MEDS ORDERED: LOSARTAN 25 MG TABLET PO SCH (09:00)
[2020-09-15] MEDS: FUROSEMIDE 40 MG/4 ML VIAL IV SCH ×2 (09:36→17:30)
[2020-09-15] MEDS: WHITE PETROLATUM MINERAL OIL TOP SCH ×2 (09:40→21:35)
[2020-09-15] MEDS: carvediloL 12.5 MG TABLET PO SCH ×2 (09:40→21:36)
[2020-09-15] MEDS: APIXABAN 2.5 MG TABLET PO SCH (09:40)
[2020-09-16 06:27] LABS: Basophils # 0.1 10*3/uL (0.0-0.2); Basophils % 1.1 % (0.0-0.8); Eosinophils # 0.2 10*3/uL (0.0-0.87); Eosinophils % 5.4 % (0.00-10.9); Hematocrit 34.4 VOL% (42.0-52.0); Hemoglobin 11.3 GM/DL (14.0-18.0); Immature Granulocytes % 0.4 %; Immature Granulocytes Absolute 0.02 #; Lymphocytes # 0.5 10*3/uL (1.4-4.0); Lymphocytes % 10.5 % (21.2-54.2); Mean Corpuscular HGB Conc 32.8 GM/DL (32-36); Mean Corpuscular Volume 96.4 FL (87-102); Mean Platelet Volume 10.7 FL (9.6-12.0); Monocytes % 12.1 % (1.7-12.7); Neutrophils % 70.5 % (38.7-73.9); Platelet Count 101 T/CUMM (130-400); Red Blood Count 3.57 MC/CUMM (3.8-5.5); Red Cell Distribution Width 16.3 % (9.3-17.3); White Blood Count 4.5 T/CUMM (4-12)
[2020-09-16 06:51] LABS: Calcium 8.8 MG/DL (8.5-10.1); Osmolality,Calculated 274.8 MOS/KG (273-304); Potassium 3.5 MMOL/L (3.5-5.1)
[2020-09-16 07:10] LABS: Hypochromasia 1+
[2020-09-16 07:11] LABS: Microcytosis 1+; Platelet Estimate Decreased
[2020-09-16] MEDS: FUROSEMIDE 40 MG/4 ML VIAL IV SCH ×2 (09:10→15:44)
[2020-09-16] MEDS: carvediloL 12.5 MG TABLET PO SCH ×2 (09:16→21:13)
[2020-09-16] MEDS: APIXABAN 2.5 MG TABLET PO SCH (09:17)
[2020-09-16] MEDS: WHITE PETROLATUM MINERAL OIL TOP SCH ×2 (09:21→21:12)
[2020-09-16] MEDS: SKIN HEALING OINT (AQUAPHOR) 50 GM TUBE TOP SCH (12:45)
[2020-09-17 05:54] LABS: Basophils % 0.6 % (0.0-0.8); Eosinophils # 0.3 10*3/uL (0.0-0.87); Eosinophils % 3.7 % (0.00-10.9); Hemoglobin 11.5 GM/DL (14.0-18.0); Immature Granulocytes % 0.6 %; Immature Granulocytes Absolute 0.04 #; Lymphocytes # 0.3 10*3/uL (1.4-4.0); Lymphocytes % 3.9 % (21.2-54.2); Mean Corpuscular HGB Conc 32.9 GM/DL (32-36); Mean Platelet Volume 11.4 FL (9.6-12.0); Monocytes % 9.2 % (1.7-12.7); Platelet Count 114 T/CUMM (130-400); Red Blood Count 3.61 MC/CUMM (3.8-5.5); Red Cell Distribution Width 16.2 % (9.3-17.3)
[2020-09-17 06:05] LABS: Calcium 8.7 MG/DL (8.5-10.1); Osmolality,Calculated 275.8 MOS/KG (273-304); Potassium 3.4 MMOL/L (3.5-5.1)
[2020-09-17 06:23] LABS: Eosinophils 6 % (0-10); Hypochromasia 1+; Lymphocytes 2 % (20-55); Microcytosis 1+; Platelet Estimate Decreased; Segmented Neutrophils 80 % (50-85); Total Cells Counted 100
[2020-09-17] MEDS: MULTIVITAMIN (CENTRUM) TABLET PO SCH (09:00)
[2020-09-17] MEDS: APIXABAN 2.5 MG TABLET PO SCH (09:00)
[2020-09-17] MEDS: carvediloL 12.5 MG TABLET PO SCH ×2 (09:01→20:50)
[2020-09-17] MEDS: FUROSEMIDE 40 MG/4 ML VIAL IV SCH (09:03)
[2020-09-17] MEDS: WHITE PETROLATUM MINERAL OIL TOP SCH ×2 (09:09→20:51)
[2020-09-17] MEDS: POTASSIUM CHLORIDE 20 MEQ TABLET PO PRN (09:39)
[2020-09-17] MEDS: SKIN HEALING OINT (AQUAPHOR) 50 GM TUBE TOP SCH (14:00)
[2020-09-18 06:07] LABS: Calcium 8.6 MG/DL (8.5-10.1); Potassium 3.8 MMOL/L (3.5-5.1)
[2020-09-18] MEDS ORDERED: TISSUE ADHESIVE 1 EACH APPLICATOR TOP ONE (09:42)
[2020-09-18] MEDS: MULTIVITAMIN (CENTRUM) TABLET PO SCH (10:01)
[2020-09-18] MEDS: FUROSEMIDE 40 MG TABLET PO SCH (10:01)
[2020-09-18] MEDS: WHITE PETROLATUM MINERAL OIL TOP SCH ×2 (10:02→20:49)
[2020-09-18] MEDS: SKIN HEALING OINT (AQUAPHOR) 50 GM TUBE TOP SCH (10:02)
[2020-09-18] MEDS: carvediloL 12.5 MG TABLET PO SCH ×2 (10:02→20:47)
[2020-09-18 10:24] LABS: Neutrophils,Peritoneal Fluid 17 %; RBC,Peritoneal Fluid 509 T/CUMM
[2020-09-18] MEDS: DESITIN 4OZ/NYSTATIN 15 GRAM MIXTURE PASTE TOP SCH ×2 (16:32→20:48)
[2020-09-19 05:15] LABS: Basophils % 0.4 % (0.0-0.8); Eosinophils # 0.4 10*3/uL (0.0-0.87); Eosinophils % 6.8 % (0.00-10.9); Hematocrit 33.6 VOL% (42.0-52.0); Hemoglobin 11.1 GM/DL (14.0-18.0); Immature Granulocytes % 0.4 %; Immature Granulocytes Absolute 0.02 #; Lymphocytes # 0.5 10*3/uL (1.4-4.0); Lymphocytes % 8.8 % (21.2-54.2); Mean Corpuscular Volume 95.7 FL (87-102); Mean Platelet Volume 11.6 FL (9.6-12.0); Monocytes % 15.7 % (1.7-12.7); Neutrophils % 67.9 % (38.7-73.9); Platelet Count 102 T/CUMM (130-400); Red Blood Count 3.51 MC/CUMM (3.8-5.5); Red Cell Distribution Width 16.1 % (9.3-17.3); White Blood Count 5.1 T/CUMM (4-12)
[2020-09-19 05:36] LABS: Calcium 8.3 MG/DL (8.5-10.1); Osmolality,Calculated 277.1 MOS/KG (273-304); Potassium 3.3 MMOL/L (3.5-5.1)
[2020-09-19 05:37] LABS: Albumin 2.5 G/DL (3.4-5.0); Bilirubin,Total 2.8 MG/DL (0.2-1.0); Calcium 8.3 MG/DL (8.5-10.1); Potassium 3.2 MMOL/L (3.5-5.1); Total Protein 6.3 G/DL (6.4-8.3)
[2020-09-19 05:39] LABS: Band Neutrophils 1 % (0-10); Eosinophils 5 % (0-10); Hypochromasia 1+; Lymphocytes 4 % (20-55); Segmented Neutrophils 78 % (50-85); Total Cells Counted 100
[2020-09-19 05:40] LABS: Microcytosis 1+; Platelet Estimate Decreased
[2020-09-19] MEDS: FUROSEMIDE 40 MG TABLET PO SCH (09:33)
[2020-09-19] MEDS: MULTIVITAMIN (CENTRUM) TABLET PO SCH (09:33)
[2020-09-19] MEDS: POTASSIUM CHLORIDE 20 MEQ TABLET PO PRN (09:33)
[2020-09-19] MEDS: SKIN HEALING OINT (AQUAPHOR) 50 GM TUBE TOP SCH (09:34)
[2020-09-19] MEDS: carvediloL 12.5 MG TABLET PO SCH ×2 (09:34→21:27)
[2020-09-19] MEDS: WHITE PETROLATUM MINERAL OIL TOP SCH ×2 (09:34→21:28)
[2020-09-19] MEDS: DESITIN 4OZ/NYSTATIN 15 GRAM MIXTURE PASTE TOP SCH ×2 (09:34→21:28)
[2020-09-19] MEDS ORDERED: POTASSIUM CHLORIDE 20 MEQ TABLET PO ONE (10:59)
[2020-09-20 06:12] LABS: Calcium 8.5 MG/DL (8.5-10.1); Osmolality,Calculated 274.1 MOS/KG (273-304); Potassium 3.4 MMOL/L (3.5-5.1)
[2020-09-20] MEDS: POTASSIUM CHLORIDE 20 MEQ TABLET PO PRN ×2 (07:07→10:19)
[2020-09-20] MEDS: MULTIVITAMIN (CENTRUM) TABLET PO SCH (10:07)
[2020-09-20] MEDS: carvediloL 12.5 MG TABLET PO SCH ×2 (10:08→21:06)
[2020-09-20] MEDS: FUROSEMIDE 40 MG TABLET PO SCH (10:09)
[2020-09-20] MEDS: SKIN HEALING OINT (AQUAPHOR) 50 GM TUBE TOP SCH (10:11)
[2020-09-20] MEDS: DESITIN 4OZ/NYSTATIN 15 GRAM MIXTURE PASTE TOP SCH ×2 (10:11→21:06)
[2020-09-20] MEDS: APIXABAN 2.5 MG TABLET PO SCH (10:15)
[2020-09-20] MEDS: WHITE PETROLATUM MINERAL OIL TOP SCH (10:21)
[2020-09-20] MEDS ORDERED: POTASSIUM CHLORIDE 20 MEQ TABLET PO ONE (11:00)
[2020-09-21] MEDS: WHITE PETROLATUM MINERAL OIL TOP SCH ×2 (01:09→11:06)
[2020-09-21 06:00] LABS: Basophils % 0.6 % (0.0-0.8); Eosinophils # 0.4 10*3/uL (0.0-0.87); Eosinophils % 7.4 % (0.00-10.9); Hematocrit 33.6 VOL% (42.0-52.0); Immature Granulocytes % 0.4 %; Immature Granulocytes Absolute 0.02 #; Lymphocytes # 0.5 10*3/uL (1.4-4.0); Lymphocytes % 11.1 % (21.2-54.2); Mean Corpuscular HGB Conc 32.7 GM/DL (32-36); Mean Platelet Volume 11.3 FL (9.6-12.0); Monocytes % 13.8 % (1.7-12.7); Neutrophils % 66.7 % (38.7-73.9); Platelet Count 107 T/CUMM (130-400); Red Cell Distribution Width 15.9 % (9.3-17.3); White Blood Count 4.7 T/CUMM (4-12)
[2020-09-21 06:29] LABS: Calcium 8.4 MG/DL (8.5-10.1); Osmolality,Calculated 279.7 MOS/KG (273-304); Potassium 3.7 MMOL/L (3.5-5.1)
[2020-09-21 06:32] LABS: Anisocytosis 2+; Platelet Estimate Adequate
[2020-09-21 06:33] LABS: Macrocytosis 1+
[2020-09-21] MEDS: carvediloL 12.5 MG TABLET PO SCH (10:35)
[2020-09-21] MEDS: MULTIVITAMIN (CENTRUM) TABLET PO SCH (10:36)
[2020-09-21] MEDS: FUROSEMIDE 40 MG TABLET PO SCH (10:36)
[2020-09-21] MEDS: APIXABAN 2.5 MG TABLET PO SCH (10:36)
[2020-09-21] MEDS: DESITIN 4OZ/NYSTATIN 15 GRAM MIXTURE PASTE TOP SCH (10:36)
[2020-09-21] MEDS: SKIN HEALING OINT (AQUAPHOR) 50 GM TUBE TOP SCH (10:36)
[2020-09-21 12:32] VITALS: BP 96/58
== END 2020-09-21 16:29 | disposition home or self-care (01) | DRG 291 ==
LOC: N.ED 09:23 → N.EDINP 09:23 → N.TELES 13:05
PROVIDERS: ADMIT Internal Medicine; ATTEND Internal Medicine

== ENCOUNTER 2020-09-25 16:54 | Inpatient (IN) ==
[2020-09-25] MEDS ORDERED: MAGNESIUM SULF RIDER 4 GM in PREMIX 1 EACH IV PRN (21:11)
[2020-09-25] MEDS ORDERED: ONDANSETRON 4 MG/2 ML VIAL IV PRN (21:11)
[2020-09-25] MEDS ORDERED: ACETAMINOPHEN 325 MG TABLET PO PRN (21:11)
[2020-09-25] MEDS ORDERED: GLUCAGON 1 MG VIAL IM PRN (21:11)
[2020-09-25] MEDS ORDERED: MELATONIN 3 MG TABLET PO PRN (21:11)
[2020-09-25] MEDS ORDERED: DEXTROSE 50% 25 GM/50 ML VIAL IV PRN (21:11)
[2020-09-25] MEDS ORDERED: MAGNESIUM SULF RIDER 2 GM in PREMIX 1 EACH IV PRN (21:11)
[2020-09-25 21:47] LABS: Basophils % 0.5 % (0.0-0.8); Eosinophils # 0.1 10*3/uL (0.0-0.87); Eosinophils % 1.9 % (0.00-10.9); Hemoglobin 12.3 GM/DL (14.0-18.0); Immature Granulocytes Absolute 0.06 #; Lymphocytes # 0.4 10*3/uL (1.4-4.0); Mean Corpuscular HGB Conc 32.4 GM/DL (32-36); Mean Corpuscular Volume 96.4 FL (87-102); Mean Platelet Volume 10.4 FL (9.6-12.0); Monocytes % 2.4 % (1.7-12.7); Neutrophils % 88.2 % (38.7-73.9); Platelet Count 164 T/CUMM (130-400); Red Blood Count 3.94 MC/CUMM (3.8-5.5); Red Cell Distribution Width 15.5 % (9.3-17.3); White Blood Count 5.9 T/CUMM (4-12)
[2020-09-25] MEDS ORDERED: NICOTINE 14 MG/24 HR PATCH TRANSDERM PRN (21:47)
[2020-09-25] MEDS ORDERED: ENOXAPARIN 80 MG/0.8 ML SYRINGE SUBCUT SCH (22:00)
[2020-09-25 22:15] LABS: Albumin 2.8 G/DL (3.4-5.0); Bilirubin,Total 3.9 MG/DL (0.2-1.0); Calcium 8.1 MG/DL (8.5-10.1); Osmolality,Calculated 276.5 MOS/KG (273-304); Potassium 3.9 MMOL/L (3.5-5.1)
[2020-09-25] MEDS: CIPROFLOXACIN INJ 400 MG in PREMIX 1 EACH IV SCH (22:40)
[2020-09-25] MEDS ORDERED: CLINDAMYCIN INJ 600 MG in PREMIX 1 EACH IV SCH (23:00)
[2020-09-26 05:11] LABS: Eosinophils % 0.2 % (0.00-10.9); Hematocrit 36.6 VOL% (42.0-52.0); Hemoglobin 12.3 GM/DL (14.0-18.0); Immature Granulocytes % 1.2 %; Immature Granulocytes Absolute 0.05 #; Lymphocytes # 0.3 10*3/uL (1.4-4.0); Lymphocytes % 7.1 % (21.2-54.2); Mean Corpuscular HGB Conc 33.6 GM/DL (32-36); Mean Corpuscular Volume 97.3 FL (87-102); Mean Platelet Volume 11.3 FL (9.6-12.0); Monocytes % 2.3 % (1.7-12.7); Neutrophils % 89.2 % (38.7-73.9); Platelet Count 183 T/CUMM (130-400); Red Blood Count 3.76 MC/CUMM (3.8-5.5); Red Cell Distribution Width 15.6 % (9.3-17.3); White Blood Count 4.3 T/CUMM (4-12)
[2020-09-26 05:29] LABS: Calcium 8.3 MG/DL (8.5-10.1); Osmolality,Calculated 278.8 MOS/KG (273-304); Potassium 3.7 MMOL/L (3.5-5.1)
[2020-09-26] MEDS: DEXAMETHASONE 4 MG/1 ML VIAL IV SCH (08:59)
[2020-09-26] MEDS: FUROSEMIDE 40 MG/4 ML VIAL IV SCH ×2 (08:59→16:55)
[2020-09-26] MEDS ORDERED: APIXABAN 2.5 MG TABLET PO SCH (09:00)
[2020-09-26] MEDS: CHOLECALCIFEROL 1,000 UNIT TABLET PO SCH (09:00)
[2020-09-26] MEDS: ZINC GLUCONATE 50 MG TABLET PO SCH (09:00)
[2020-09-26] MEDS: ASPIRIN CHEW 81 MG TABLET PO SCH (09:00)
[2020-09-26] MEDS: CETIRIZINE 10 MG TABLET PO SCH (09:00)
[2020-09-26] MEDS: OSELTAMIVIR 75 MG CAPSULE PO SCH ×2 (09:00→21:00)
[2020-09-26] MEDS: AZITHROMYCIN 250 MG TABLET PO SCH (09:00)
[2020-09-26] MEDS: FAMOTIDINE 20 MG TABLET PO SCH ×2 (09:00→21:00)
[2020-09-26] MEDS: carvediloL 25 MG TABLET PO SCH ×2 (09:00→21:00)
[2020-09-26] MEDS ORDERED: REMDESIVIR 200 MG in SODIUM CHLORIDE 0.9% 210 ML IV ONE (09:00)
[2020-09-26] MEDS: ASCORBIC ACID 500 MG TABLET PO SCH ×2 (09:00→21:00)
[2020-09-26] MEDS: LOSARTAN 25 MG TABLET PO SCH (09:01)
[2020-09-26] MEDS: CIPROFLOXACIN INJ 400 MG in PREMIX 1 EACH IV SCH ×2 (10:39→21:00)
[2020-09-27 05:25] LABS: Basophils % 0.1 % (0.0-0.8); Hematocrit 33.9 VOL% (42.0-52.0); Hemoglobin 10.8 GM/DL (14.0-18.0); Immature Granulocytes % 0.8 %; Immature Granulocytes Absolute 0.08 #; Lymphocytes # 0.4 10*3/uL (1.4-4.0); Lymphocytes % 4.6 % (21.2-54.2); Mean Corpuscular HGB Conc 31.9 GM/DL (32-36); Mean Corpuscular Volume 99.1 FL (87-102); Mean Platelet Volume 10.7 FL (9.6-12.0); Monocytes % 6.6 % (1.7-12.7); Neutrophils % 87.9 % (38.7-73.9); Platelet Count 169 T/CUMM (130-400); Red Blood Count 3.42 MC/CUMM (3.8-5.5); Red Cell Distribution Width 15.3 % (9.3-17.3); White Blood Count 9.6 T/CUMM (4-12)
[2020-09-27 05:45] LABS: Osmolality,Calculated 279.7 MOS/KG (273-304); Potassium 4.1 MMOL/L (3.5-5.1)
[2020-09-27 05:53] LABS: Ferritin 102.6 ng/ml (26-388)
[2020-09-27 06:08] LABS: Band Neutrophils 2 % (0-10); Hypochromasia 1+; Lymphocytes 5 % (20-55); Segmented Neutrophils 83 % (50-85); Total Cells Counted 100
[2020-09-27 06:09] LABS: Macrocytosis Slight
[2020-09-27] MEDS: OSELTAMIVIR 75 MG CAPSULE PO SCH ×2 (08:58→20:49)
[2020-09-27] MEDS: ZINC GLUCONATE 50 MG TABLET PO SCH (08:58)
[2020-09-27] MEDS: FAMOTIDINE 20 MG TABLET PO SCH ×2 (08:58→20:49)
[2020-09-27] MEDS: CHOLECALCIFEROL 1,000 UNIT TABLET PO SCH (08:58)
[2020-09-27] MEDS: CETIRIZINE 10 MG TABLET PO SCH (08:58)
[2020-09-27] MEDS: ASCORBIC ACID 500 MG TABLET PO SCH ×2 (08:58→20:49)
[2020-09-27] MEDS: DEXAMETHASONE 4 MG/1 ML VIAL IV SCH (08:58)
[2020-09-27] MEDS: AZITHROMYCIN 250 MG TABLET PO SCH (08:58)
[2020-09-27] MEDS: REMDESIVIR 100 MG in SODIUM CHLORIDE 0.9% 100 ML IV SCH (09:38)
[2020-09-27] MEDS: ASPIRIN CHEW 81 MG TABLET PO SCH (09:38)
[2020-09-27] MEDS: CIPROFLOXACIN INJ 400 MG in PREMIX 1 EACH IV SCH ×2 (10:39→22:22)
[2020-09-27] MEDS ORDERED: TISSUE ADHESIVE 1 EACH APPLICATOR TOP ONE (15:59)
[2020-09-28 06:03] LABS: Basophils % 0.1 % (0.0-0.8); Hematocrit 35.5 VOL% (42.0-52.0); Hemoglobin 11.4 GM/DL (14.0-18.0); Immature Granulocytes % 0.6 %; Immature Granulocytes Absolute 0.05 #; Lymphocytes # 0.4 10*3/uL (1.4-4.0); Mean Corpuscular HGB Conc 32.1 GM/DL (32-36); Mean Corpuscular Volume 98.1 FL (87-102); Mean Platelet Volume 10.5 FL (9.6-12.0); Monocytes % 7.9 % (1.7-12.7); Neutrophils % 86.4 % (38.7-73.9); Platelet Count 157 T/CUMM (130-400); Red Blood Count 3.62 MC/CUMM (3.8-5.5); Red Cell Distribution Width 15.4 % (9.3-17.3); White Blood Count 8.2 T/CUMM (4-12)
[2020-09-28 06:18] LABS: Calcium 8.1 MG/DL (8.5-10.1); Osmolality,Calculated 280.7 MOS/KG (273-304); Potassium 4.1 MMOL/L (3.5-5.1)
[2020-09-28 06:23] LABS: Ferritin 87.1 ng/ml (26-388)
[2020-09-28] MEDS: DEXAMETHASONE 4 MG/1 ML VIAL IV SCH (08:10)
[2020-09-28] MEDS: CETIRIZINE 10 MG TABLET PO SCH (08:11)
[2020-09-28] MEDS: LOSARTAN 25 MG TABLET PO SCH (08:11)
[2020-09-28] MEDS: CHOLECALCIFEROL 1,000 UNIT TABLET PO SCH (08:11)
[2020-09-28] MEDS: FAMOTIDINE 20 MG TABLET PO SCH (08:11)
[2020-09-28] MEDS: AZITHROMYCIN 250 MG TABLET PO SCH (08:11)
[2020-09-28] MEDS: ZINC GLUCONATE 50 MG TABLET PO SCH (08:11)
[2020-09-28] MEDS: ASCORBIC ACID 500 MG TABLET PO SCH (08:11)
[2020-09-28] MEDS: ASPIRIN CHEW 81 MG TABLET PO SCH (08:11)
[2020-09-28] MEDS: OSELTAMIVIR 75 MG CAPSULE PO SCH (08:12)
[2020-09-28] MEDS ORDERED: FUROSEMIDE 40 MG TABLET PO SCH (09:00)
[2020-09-28] MEDS: REMDESIVIR 100 MG in SODIUM CHLORIDE 0.9% 100 ML IV SCH (10:17)
[2020-09-28 11:02] VITALS: BP 111/73
[2020-09-28] MEDS: CIPROFLOXACIN INJ 400 MG in PREMIX 1 EACH IV SCH (11:49)
== END 2020-09-28 13:20 | disposition home or self-care (01) | DRG 178 ==
LOC: N.2E 19:17
PROVIDERS: ADMIT Internal Medicine; ATTEND Internal Medicine Geriatric Medicine

== ENCOUNTER 2020-12-12 16:25 | Inpatient (IN) ==
[2020-12-12 17:00] LABS: Basophils % 0.5 % (0.0-0.8); Eosinophils # 0.4 10*3/uL (0.0-0.87); Eosinophils % 7.6 % (0.00-10.9); Hemoglobin 11.5 GM/DL (14.0-18.0); Immature Granulocytes % 0.4 %; Immature Granulocytes Absolute 0.02 #; Lymphocytes # 0.6 10*3/uL (1.4-4.0); Lymphocytes % 10.1 % (21.2-54.2); Mean Corpuscular HGB Conc 31.9 GM/DL (32-36); Mean Corpuscular Volume 97.6 FL (87-102); Mean Platelet Volume 10.7 FL (9.6-12.0); Monocytes % 11.8 % (1.7-12.7); Neutrophils % 69.6 % (38.7-73.9); Platelet Count 129 T/CUMM (130-400); Red Blood Count 3.69 MC/CUMM (3.8-5.5); Red Cell Distribution Width 15.8 % (9.3-17.3); White Blood Count 5.7 T/CUMM (4-12)
[2020-12-12 17:25] LABS: Bilirubin,Total 5.2 MG/DL (0.2-1.0); Osmolality,Calculated 280.3 MOS/KG (273-304); Total Protein 6.6 G/DL (6.4-8.2)
[2020-12-12 17:37] LABS: Bilirubin,Urine Negative (Negative); Blood, Urine Negative (Negative); Glucose,Urine (UA) Negative (Negative); Hyaline Casts,Urine 4 /LPF (0-3); Ketones,Urine Negative (Negative); Mucus,Urine Occasional /LPF (Occasional); Nitrite,Urine Negative (Negative); Protein,Urine Negative; RBC,Urine 2 /HPF (0-4); Squamous Epithelial Cell,Urine Occasional /HPF (0-10); Urine Appearance CLEAR (Clear); Urine Color Amber (Yellow); Urine Specific Gravity 1.021 (1.001-1.035)
[2020-12-12] MEDS ORDERED: LEVOFLOXACIN INJ 500 MG/100 ML PREMIX IV STA (17:38)
[2020-12-12] MEDS ORDERED: GLUCAGON 1 MG VIAL IM PRN (17:51)
[2020-12-12] MEDS ORDERED: ACETAMINOPHEN 325 MG TABLET PO PRN (17:51)
[2020-12-12] MEDS ORDERED: DEXTROSE 50% 25 GM/50 ML VIAL IV PRN (17:51)
[2020-12-12] MEDS ORDERED: ONDANSETRON 4 MG/2 ML VIAL IV PRN (17:51)
[2020-12-12] MEDS ORDERED: ENOXAPARIN 40 MG/0.4 ML SYRINGE SUBCUT SCH (18:00)
[2020-12-12] MEDS ORDERED: FUROSEMIDE 40 MG/4 ML VIAL IV ONE (18:17)
[2020-12-12 18:22] LABS: Thyroid Stimulating Hormone 10.2 uIU/ml (0.358-3.74)
[2020-12-13] MEDS: carvediloL 25 MG TABLET PO SCH ×3 (01:14→20:47)
[2020-12-13] MEDS: APIXABAN 2.5 MG TABLET PO SCH ×3 (01:14→20:45)
[2020-12-13] MEDS: ASCORBIC ACID 500 MG TABLET PO SCH ×3 (01:15→20:47)
[2020-12-13 05:06] LABS: Basophils # 0.1 10*3/uL (0.0-0.2); Eosinophils # 0.4 10*3/uL (0.0-0.87); Eosinophils % 7.9 % (0.00-10.9); Hematocrit 32.2 VOL% (42.0-52.0); Hemoglobin 10.6 GM/DL (14.0-18.0); Immature Granulocytes % 0.4 %; Immature Granulocytes Absolute 0.02 #; Lymphocytes # 0.4 10*3/uL (1.4-4.0); Lymphocytes % 7.7 % (21.2-54.2); Mean Corpuscular HGB Conc 32.9 GM/DL (32-36); Mean Corpuscular Volume 95.3 FL (87-102); Mean Platelet Volume 10.5 FL (9.6-12.0); Monocytes % 12.1 % (1.7-12.7); Neutrophils % 70.9 % (38.7-73.9); Platelet Count 111 T/CUMM (130-400); Red Blood Count 3.38 MC/CUMM (3.8-5.5); Red Cell Distribution Width 15.7 % (9.3-17.3); White Blood Count 5.2 T/CUMM (4-12)
[2020-12-13 05:31] LABS: Calcium 8.5 MG/DL (8.5-10.1); Osmolality,Calculated 279.4 MOS/KG (273-304); Potassium 3.6 MMOL/L (3.5-5.1)
[2020-12-13] MEDS: FUROSEMIDE 40 MG/4 ML VIAL IV SCH ×2 (08:06→17:00)
[2020-12-13] MEDS: ASPIRIN CHEW 81 MG TABLET PO SCH (08:07)
[2020-12-13] MEDS: PANTOPRAZOLE 40 MG TABLET PO SCH (08:08)
[2020-12-13] MEDS: SPIRONOLACTONE 25 MG TABLET PO SCH (08:08)
[2020-12-13] MEDS: SKIN HEALING OINT (AQUAPHOR) 50 GM TUBE TOP PRN (16:48)
[2020-12-14 06:29] LABS: Basophils % 0.7 % (0.0-0.8); Eosinophils # 0.3 10*3/uL (0.0-0.87); Eosinophils % 5.9 % (0.00-10.9); Hematocrit 32.9 VOL% (42.0-52.0); Hemoglobin 10.7 GM/DL (14.0-18.0); Immature Granulocytes % 0.4 %; Immature Granulocytes Absolute 0.02 #; Lymphocytes # 0.6 10*3/uL (1.4-4.0); Lymphocytes % 10.6 % (21.2-54.2); Mean Corpuscular HGB Conc 32.5 GM/DL (32-36); Mean Corpuscular Volume 96.5 FL (87-102); Mean Platelet Volume 10.9 FL (9.6-12.0); Monocytes % 12.1 % (1.7-12.7); Neutrophils % 70.3 % (38.7-73.9); Platelet Count 127 T/CUMM (130-400); Red Blood Count 3.41 MC/CUMM (3.8-5.5); Red Cell Distribution Width 15.6 % (9.3-17.3); White Blood Count 5.4 T/CUMM (4-12)
[2020-12-14 06:38] LABS: Calcium 8.5 MG/DL (8.5-10.1); Osmolality,Calculated 277.5 MOS/KG (273-304); Potassium 3.6 MMOL/L (3.5-5.1)
[2020-12-14 07:38] LABS: Hypochromasia 1+
[2020-12-14 07:39] LABS: Microcytosis 1+; Platelet Estimate Adequate
[2020-12-14] MEDS: FUROSEMIDE 40 MG/4 ML VIAL IV SCH ×2 (08:32→17:30)
[2020-12-14] MEDS: carvediloL 25 MG TABLET PO SCH (08:33)
[2020-12-14] MEDS: ASPIRIN CHEW 81 MG TABLET PO SCH (08:33)
[2020-12-14] MEDS: MULTIVITAMIN (CENTRUM) TABLET PO SCH (08:33)
[2020-12-14] MEDS: SPIRONOLACTONE 25 MG TABLET PO SCH (08:33)
[2020-12-14] MEDS: PANTOPRAZOLE 40 MG TABLET PO SCH (08:33)
[2020-12-14] MEDS: ASCORBIC ACID 500 MG TABLET PO SCH ×2 (08:33→20:25)
[2020-12-14] MEDS: MAGNESIUM HYDROXIDE SUSP 30 ML UDCUP PO PRN ×2 (09:02→14:06)
[2020-12-14] MEDS: SKIN HEALING OINT (AQUAPHOR) 50 GM TUBE TOP PRN (10:01)
[2020-12-14] MEDS: LEVOFLOXACIN INJ 500 MG/100 ML PREMIX IV SCH (12:04)
[2020-12-14] MEDS: ENOXAPARIN 40 MG/0.4 ML SYRINGE SUBCUT SCH (12:04)
[2020-12-14] MEDS: MIDODRINE 5 MG TABLET PO SCH ×2 (16:18→20:25)
[2020-12-15] MEDS: LEVOTHYROXINE 88 MCG TABLET PO SCH (05:56)
[2020-12-15 06:08] LABS: Eosinophils # 0.4 10*3/uL (0.0-0.87); Hemoglobin 11.2 GM/DL (14.0-18.0); Immature Granulocytes % 0.4 %; Immature Granulocytes Absolute 0.02 #; Mean Corpuscular Volume 93.8 FL (87-102)
[2020-12-15 06:12] LABS: Basophils % 0.9 % (0.0-0.8); Eosinophils % 8.5 % (0.00-10.9); Hematocrit 33.4 VOL% (42.0-52.0); Lymphocytes # 0.5 10*3/uL (1.4-4.0); Lymphocytes % 11.5 % (21.2-54.2); Mean Corpuscular HGB Conc 33.5 GM/DL (32-36); Monocytes % 14.5 % (1.7-12.7); Neutrophils % 64.2 % (38.7-73.9); Platelet Count 109 T/CUMM (130-400); Red Blood Count 3.56 MC/CUMM (3.8-5.5); Red Cell Distribution Width 15.4 % (9.3-17.3); White Blood Count 4.7 T/CUMM (4-12)
[2020-12-15 06:40] LABS: Hypochromasia 1+
[2020-12-15 06:41] LABS: Calcium 8.5 MG/DL (8.5-10.1); Microcytosis 1+; Osmolality,Calculated 276.7 MOS/KG (273-304); Potassium 3.6 MMOL/L (3.5-5.1)
[2020-12-15] MEDS: FUROSEMIDE 40 MG/4 ML VIAL IV SCH ×2 (09:11→15:51)
[2020-12-15] MEDS: PANTOPRAZOLE 40 MG TABLET PO SCH (09:11)
[2020-12-15] MEDS: MIDODRINE 5 MG TABLET PO SCH ×3 (09:11→20:35)
[2020-12-15] MEDS: MULTIVITAMIN (CENTRUM) TABLET PO SCH (09:11)
[2020-12-15] MEDS: ASCORBIC ACID 500 MG TABLET PO SCH ×2 (09:11→20:36)
[2020-12-15] MEDS: ASPIRIN CHEW 81 MG TABLET PO SCH (09:11)
[2020-12-15] MEDS: LEVOFLOXACIN INJ 500 MG/100 ML PREMIX IV SCH (12:20)
[2020-12-15] MEDS: ENOXAPARIN 40 MG/0.4 ML SYRINGE SUBCUT SCH (12:20)
[2020-12-15] MEDS ORDERED: diphenhydrAMINE CAP 25 MG CAPSULE PO PRN (19:57)
[2020-12-15] MEDS: SKIN HEALING OINT (AQUAPHOR) 50 GM TUBE TOP PRN (20:40)
[2020-12-15] MEDS: POTASSIUM CHLORIDE 20 MEQ TABLET PO PRN (23:40)
[2020-12-16 05:46] LABS: Basophils # 0.1 10*3/uL (0.0-0.2); Basophils % 0.9 % (0.0-0.8); Eosinophils # 0.5 10*3/uL (0.0-0.87); Eosinophils % 8.9 % (0.00-10.9); Hematocrit 34.4 VOL% (42.0-52.0); Hemoglobin 11.1 GM/DL (14.0-18.0); Immature Granulocytes % 0.5 %; Immature Granulocytes Absolute 0.03 #; Lymphocytes # 0.6 10*3/uL (1.4-4.0); Lymphocytes % 11.5 % (21.2-54.2); Mean Corpuscular HGB Conc 32.3 GM/DL (32-36); Mean Corpuscular Volume 96.1 FL (87-102); Mean Platelet Volume 10.9 FL (9.6-12.0); Monocytes % 13.7 % (1.7-12.7); Neutrophils % 64.5 % (38.7-73.9); Platelet Count 138 T/CUMM (130-400); Red Blood Count 3.58 MC/CUMM (3.8-5.5); Red Cell Distribution Width 15.5 % (9.3-17.3); White Blood Count 5.5 T/CUMM (4-12)
[2020-12-16 06:06] LABS: Platelet Estimate Adequate
[2020-12-16 06:12] LABS: Calcium 8.8 MG/DL (8.5-10.1); Osmolality,Calculated 278.5 MOS/KG (273-304); Potassium 3.7 MMOL/L (3.5-5.1)
[2020-12-16] MEDS: LEVOTHYROXINE 88 MCG TABLET PO SCH (07:17)
[2020-12-16 08:38] LABS: INR 1.2; PT Patient Result 13.1 SECS (10.5-12.0)
[2020-12-16] MEDS: ALBUMIN 25% 12.5 GM/50 ML VIAL IV PRN ×2 (10:00→10:35)
[2020-12-16] MEDS ORDERED: ALBUMIN 25% 12.5 GM/50 ML VIAL IV ONE (10:09)
[2020-12-16 11:11] LABS: LDH,Peritoneal Fluid 75 U/L; Total Protein,Peritoneal Fluid 3.2 G/DL
[2020-12-16] MEDS: ASPIRIN CHEW 81 MG TABLET PO SCH (11:26)
[2020-12-16] MEDS: PANTOPRAZOLE 40 MG TABLET PO SCH (11:27)
[2020-12-16] MEDS: MIDODRINE 5 MG TABLET PO SCH ×3 (11:27→22:07)
[2020-12-16] MEDS: ASCORBIC ACID 500 MG TABLET PO SCH ×2 (11:27→22:07)
[2020-12-16] MEDS: MULTIVITAMIN (CENTRUM) TABLET PO SCH (11:27)
[2020-12-16 11:28] LABS: Neutrophils,Peritoneal Fluid 51 %
[2020-12-16] MEDS: FUROSEMIDE 40 MG/4 ML VIAL IV SCH ×2 (11:28→16:11)
[2020-12-16 11:29] LABS: RBC,Peritoneal Fluid 268 T/CUMM
[2020-12-16] MEDS: LEVOFLOXACIN INJ 500 MG/100 ML PREMIX IV SCH (11:29)
[2020-12-16] MEDS: ENOXAPARIN 40 MG/0.4 ML SYRINGE SUBCUT SCH (11:31)
[2020-12-16] MEDS: carvediloL 25 MG TABLET PO SCH (22:07)
[2020-12-17] MEDS ORDERED: MELATONIN 3 MG TABLET PO PRN (02:01)
[2020-12-17 05:51] LABS: Basophils % 0.5 % (0.0-0.8); Eosinophils # 0.5 10*3/uL (0.0-0.87); Eosinophils % 8.6 % (0.00-10.9); Hematocrit 32.4 VOL% (42.0-52.0); Hemoglobin 10.8 GM/DL (14.0-18.0); Immature Granulocytes % 1.1 %; Immature Granulocytes Absolute 0.06 #; Lymphocytes # 0.7 10*3/uL (1.4-4.0); Mean Corpuscular HGB Conc 33.3 GM/DL (32-36); Mean Corpuscular Volume 94.2 FL (87-102); Mean Platelet Volume 10.6 FL (9.6-12.0); Monocytes % 12.9 % (1.7-12.7); Neutrophils % 64.9 % (38.7-73.9); Platelet Count 126 T/CUMM (130-400); Red Blood Count 3.44 MC/CUMM (3.8-5.5); Red Cell Distribution Width 15.4 % (9.3-17.3); White Blood Count 5.7 T/CUMM (4-12)
[2020-12-17] MEDS: LEVOTHYROXINE 88 MCG TABLET PO SCH (05:56)
[2020-12-17 06:15] LABS: Calcium 8.6 MG/DL (8.5-10.1); Osmolality,Calculated 279.5 MOS/KG (273-304); Potassium 3.4 MMOL/L (3.5-5.1)
[2020-12-17 06:16] LABS: Hypochromasia 1+
[2020-12-17 06:17] LABS: Microcytosis 1+; Platelet Estimate Normal
[2020-12-17] MEDS: carvediloL 25 MG TABLET PO SCH (09:30)
[2020-12-17] MEDS: SPIRONOLACTONE 25 MG TABLET PO SCH (09:30)
[2020-12-17] MEDS: FUROSEMIDE 40 MG/4 ML VIAL IV SCH ×2 (09:31→15:15)
[2020-12-17] MEDS: APIXABAN 2.5 MG TABLET PO SCH (09:32)
[2020-12-17] MEDS: POTASSIUM CHLORIDE 20 MEQ TABLET PO PRN ×2 (09:32→10:42)
[2020-12-17] MEDS: ASCORBIC ACID 500 MG TABLET PO SCH (09:32)
[2020-12-17] MEDS: MIDODRINE 5 MG TABLET PO SCH ×2 (09:33→15:24)
[2020-12-17] MEDS: MULTIVITAMIN (CENTRUM) TABLET PO SCH (09:33)
[2020-12-17] MEDS: ASPIRIN CHEW 81 MG TABLET PO SCH (09:33)
[2020-12-17] MEDS: PANTOPRAZOLE 40 MG TABLET PO SCH (09:33)
[2020-12-17] MEDS: LEVOFLOXACIN INJ 500 MG/100 ML PREMIX IV SCH (11:33)
[2020-12-17] MEDS: ENOXAPARIN 40 MG/0.4 ML SYRINGE SUBCUT SCH (11:33)
[2020-12-17 16:26] VITALS: BP 101/54
== END 2020-12-17 18:32 | disposition home or self-care (01) | DRG 291 ==
LOC: EDUNIT# → EDBD → N.EDINP 16:25 → N.ED 16:25 → N.TELES 19:35 → SUATTDRO 12-13 13:47
PROVIDERS: ADMIT Internal Medicine; ATTEND Internal Medicine Geriatric Medicine